=== PATIENT | female | born 1955 | race Caucasian/White ===

== ENCOUNTER 2017-09-07 11:55 | Emergency (ER) | payer OTHER ==
[2017-09-07 13:36] VITALS: BP 126/75
[2017-09-07 13:58] LABS: BASOPHILS % (AUTO) 0.6 %; EOSINOPHILS # (AUTO) 0.1 10^3/uL (0.0-0.7); EOSINOPHILS % (AUTO) 2.3 %; HCT - HEMATOCRIT 41.2 % (37.0-47.0); HGB - HEMOGLOBIN 14.2 g/dL (12.0-16.0); LYMPHOCYTES # (AUTO) 1.6 10^3/uL (1.5-3.5); LYMPHOCYTES % (AUTO) 24.5 %; MEAN CORPUSCULAR HGB CONC 34.5 g/dL (32.0-36.0); MEAN CORPUSCULAR VOLUME 86.7 fL (81.0-99.0); MEAN PLATELET VOLUME 9.7 fL (7.9-10.8); MONOCYTES # (AUTO) 0.6 10^3/uL (0.0-1.0); MONOCYTES % (AUTO) 9.8 %; NEUTROPHILS % (AUTO) 62.8 %; RED BLOOD COUNT 4.75 10^6/uL (4.20-5.40); RED CELL DISTRIBUTION WIDTH 13.2 % (12.0-15.0); UNCORRECTED WHITE BLOOD COUNT 6.3 x10^3/uL; WHITE BLOOD COUNT 6.3 x10^3/uL (4.8-10.8)
[2017-09-07 14:01] LABS: CALCIUM 9.6 mg/dL (8.5-10.3); CREATININE 0.9 mg/dL (0.4-1.0)
--- NOTE | 2017-09-07 14:21 | ED Physician Documentation ---
PD HPI DYSPNEA - Stated complaint Stated Complaint: SOA,COUGH,BACK PX - Chief complaint Chief Complaint: Resp - History obtained from History obtained from: Patient - History of Present Illness Associated symptoms: Cough - Additional information Additional information: 62-year-old female presents to the emergency department with cough, myalgias, subjective fevers, chest heaviness when breathing for the last 3 days. She reports that her shortness of breath is present at all times. She did not receive a flu shot this year. She has no underlying lung disease and does not use any nebulizers or inhalers. She also has nasal congestion.She is taking NyQuil and saline nasal spray with minimal relief She has no lower extremity swelling. Her chest heaviness is substernal and constant for the last 3 days. 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 : None Psych: Depression, Anxiety Musculoskeletal: Osteoarthritis, Fibromyalgia Derm: None - Past Surgical History Past Surgical History: Yes General: Appendectomy Ortho: Spine surgery - Present Medications Home Medications: Ambulatory Orders Medication Instructions Recorded Confirmed Albuterol Sulf [Ventolin Hfa 2 puffs INH Q4HR PRN #1 inhaler 09/07/17 Inhaler] Benzonatate [Tessalon Perle] 100 - 200 mg PO TID PRN #30 capsule 09/07/17 - Allergies Allergies/Adverse Reactions: Allergies Allergy/AdvReac Type Severity Reaction Status Date / Time No Known Drug Allergies Allergy Verified 09/07/17 12:06 - Social History Does the pt smoke?: No Smoking Status: Never smoker Does the pt drink ETOH?: Yes Does the pt have substance abuse?: No - Immunizations Immunizations are current?: Yes - POLST Patient has POLST: No PD ED PE NORMAL - Vitals Vital signs reviewed: Yes - General General: Alert and oriented X 3, No acute distress - HEENT HEENT: PERRL, Other (nasal congestion ) - Neck Neck: Supple, no meningeal sign - Cardiac Cardiac: RRR, No murmur - Respiratory Respiratory: Clear bilaterally - Abdomen Abdomen: Normal bowel sounds, Soft, Non tender, Non distended - Derm Derm: Warm and dry - Extremities Extremities: No deformity - Neuro Neuro: Alert and oriented X 3 - Psych Psych: Normal mood, Normal affect Results - Vitals Vitals: Vital Signs - 24 hr 09/07/17 09/07/17 09/07/17 12:03 13:36 15:23 Temperature 36.6 C 36.5 C Heart Rate 80 76 81 Respiratory 24 18 14 Rate Blood Pressure 158/86 H 126/75 O2 Saturation 95 99 Oxygen O2 Source Room air - EKG (time done) 1203 Rate: Rate (enter#) (79) Rhythm: NSR [place]: Normal Intervals: Normal [place] Ischemia: Normal ST segments - Labs Labs: Laboratory Tests 09/07/17 09/07/17 09/07/17 13:06 13:06 13:35 WBC 6.3 RBC 4.75 Hgb 14.2 Hct 41.2 MCV 86.7 MCH 30.0 MCHC 34.5 RDW 13.2 Plt Count 202 MPV 9.7 Neut # 4.0 Lymph # 1.6 Bond # 0.6 Eos # 0.1 Baso # 0.0 Absolute Nucleated RBC 0.00 Nucleated RBC % 0.0 Sodium 142 Potassium 4.0 Chloride 101 Carbon Dioxide 27 Anion Gap 14.0 H BUN 16 Creatinine 0.9 Estimated GFR (MDRD) 63 L Glucose 103 H Calcium 9.6 B-Natriuretic Peptide < 5 L Influenza A (Rapid) Influenza B (Rapid) Influenza Types A,B Ag 09/07/17 14:18 WBC RBC Hgb Hct MCV MCH MCHC RDW Plt Count MPV Neut # Lymph # Bond # Eos # Baso # Absolute Nucleated RBC Nucleated RBC % Sodium Potassium Chloride Carbon Dioxide Anion Gap BUN Creatinine Estimated GFR (MDRD) Glucose Calcium B-Natriuretic Peptide Influenza A (Rapid) Negative Influenza B (Rapid) Negative Influenza Types A,B Ag - - Rads (name of study) chest xray Radiology: Final report received (No acute intrathoracic plain film abnormality) PD MEDICAL DECISION MAKING - ED course ED course: Chest x-ray and laboratory workup unrevealing and within normal limits.Patient is having some chest pressure which is quite atypical for cardiac chest pain nonetheless an EKG was performed and unrevealing.She did not have any indications for antibiotics at this time. She was treated with an albuterol Nebulizers she has had history of wheeze with other infections although does not have a diagnosis of asthma, at the very least would help potentially with her cough. Discussed with patient symptomatic management and return precautions. influenza negative Departure - Departure Disposition: 01 Home, Self Care Clinical Impression: Sinusitis, Upper respiratory infection Condition: Good Instructions: ED Sinusitis No Abx, ED Viral Syndrome Prescriptions: Albuterol Sulf [Ventolin Hfa Inhaler] 2 puffs INH Q4HR PRN #1 inhaler PRN Reason: Cough Benzonatate [Tessalon Perle] 100 - 200 mg PO TID PRN #30 capsule PRN Reason: Cough Comments: Make an appointment to follow-up with your primary care doctor for recheck. Your chest X-ray did not reveal any pneumonia or other abnormalities today. Your laboratory workup was unrevealing and reassuring. Your influenza test was negative. You were given an inhaler not because you were wheezing or have asthma but to help your cough. At this time antibiotics would be unlikely to help your symptoms, there is a good chance that you have a viral illness. If your symptoms get worse with more difficulty breathing or if you have any chest pain you should return to the emergency department. For now you should take zysa-ilq-rtqapdl ibuprofen and Tylenol and cold remedies as directed on the package.
--- NOTE | 2017-09-07 14:44 | XRAY Preliminary Report ---
Exam: XR CHEST 2 VIEW PA/LAT IMPRESSION: No acute intrathoracic plain film abnormality. [facility] SITE ID: [id number]
--- NOTE | 2017-09-07 14:47 | XRAY Report ---
EXAM: CHEST RADIOGRAPHY EXAM DATE: 09/07/2017 01:59 PM. CLINICAL HISTORY: Cough, SOB. COMPARISON: None. TECHNIQUE: 2 views. FINDINGS: Lungs/Pleura: No focal opacities evident. No pleural effusion. No pneumothorax. Normal volumes. Mediastinum: Heart and mediastinal contours are unremarkable. Other: None. IMPRESSION: No acute intrathoracic plain film abnormality. [facility] Referring Provider Line: [phone] SITE ID: [id number]
[2017-09-07] MEDS ORDERED: ALBUTEROL NEB 2.5 MG/3 ML INH STA (15:04)
[2017-09-07] MEDS ORDERED: KETOROLAC 30 MG/ML VIAL IVP STA (15:06)
[2017-09-07] MEDS ORDERED: BENZONATATE 100 MG CAPSULE PO STA (15:07)
[2017-09-07] MEDS ORDERED: KETOROLAC 30 MG/ML VIAL ONE ×2 (15:23→15:36)
[2017-09-07] MEDS ORDERED: BENZONATATE 100 MG CAPSULE PO ONE (15:23)
[2017-09-07] MEDS ORDERED: ALBUTEROL NEB 2.5 MG/3 ML INH ONE (15:24)
[2017-09-07] MEDS ORDERED: KETOROLAC 30 MG/ML VIAL IM STA (15:28)
== END 2017-09-07 15:50 | disposition home or self-care (01) ==
LOC: ED 11:55
DX: J32.9 Chronic sinusitis, unspecified (principal); J06.9 Acute upper respiratory infection, unspecified; I10 Essential (primary) hypertension; M19.90 Unspecified osteoarthritis, unspecified site; M79.7 Fibromyalgia; R07.89 Other chest pain
CPT/HCPCS: 36415; 71020; 80048; 83880; 85025; 87275; 87276; 93005; 94640; 94664; 96372; 96374; 99282; 99284; A9270; J7613

== ENCOUNTER 2017-12-03 13:40 | Outpatient (CLI) | payer OTHER ==
--- NOTE | 2017-12-03 16:59 | MRI Report ---
EXAM: MRI THORACIC SPINE WITHOUT CONTRAST EXAM DATE: 12/03/2017 03:05 PM. CLINICAL HISTORY: Cervicalgia, for pending neurostimulator implant. Chronic neck and low back pain. B ilateral hand pain and numbness. Previous cervical spine fusion. COMPARISONS: None. TECHNIQUE: Multiplanar, multisequence T1-weighted and fluid-sensitive sequences of the thoracic spine from C7 to L1 without contrast. Other: None. FINDINGS: Spinal Cord: No signal abnormality in the visualized spinal cord. Alignment: No scoliosis or spondylolisthesis. Bone Marrow: No gross fractures or bone lesion. No bone marrow edema. Disk Levels/Facets: C6-C7: Yoow-zi-khoopquc disk space narrowing. Tiny posterior left paracentral disk protrusion/osteoph yte complex. Previous laminectomy. No stenoses. C7-T1: Minimal disk bulge. Nxii-kr-ctpmzqag left and mild right facet arthropathy. No stenoses. T1-T2: Small posterior disk bulge. Small left foraminal disk protrusion. Mild facet arthropathy. Mode rate to severe left and moderate right foraminal stenoses. T2-T3: Small posterior central to left paracentral disk protrusion. Pajv-ew-cagrcugk right and mild l eft facet arthropathy. No stenoses. T3-T4: Mild right facet arthropathy. No stenoses. T4-T5: Unremarkable. T5-T6: Small anterior osteophytes. No stenoses. T6-T7 unremarkable. T7-T8: Unremarkable. T8-T9: Small Schmorl's node at the T8 inferior endplate. Otherwise, unremarkable. T9-T10, T10-T11, T11-T12, T12-L1: Unremarkable. Musculature: Normal. No edema or fatty atrophy. Other: The visualized lungs, mediastinum, and abdominal cavity are unremarkable. Metallic fusion hard rowell at the cervical spine. IMPRESSION: 1. Tiny posterior left paracentral disk protrusion/osteophyte complex at C6-C7. Previous laminectomy. 2. Small posterior disk bulge and small left foraminal disk protrusion at T1-T2. Moderate to severe l eft and moderate right foraminal stenoses. 3. Small posterior central to left paracentral disk protrusion at T2-T3. No stenoses. [facility] Referring Provider Line: [phone] SITE ID: [id number]
== END 2017-12-03 13:41 | disposition home or self-care (01) ==
LOC: DI 13:40
PROVIDERS: ATTEND Anesthesiology Pain Medicine
DX: M50.223 Other cervical disc displacement at C6-C7 level (principal); M51.24 Other intervertebral disc displacement, thoracic region; M47.894 Other spondylosis, thoracic region
CPT/HCPCS: 72146

== ENCOUNTER 2018-01-24 11:42 | Outpatient (CLI) | payer OTHER ==
--- NOTE | 2018-02-02 16:34 | Mammography Report ---
SCREENING MAMMOGRAM: 01/24/2018 CLINICAL INDICATION: A 62-year-old with history of reduction, family history of breast cancer, history of late childbearing, for screening. COMPARISON: The patient reports having had previous mammograms, but images have not arrived for direct comparison. If they become available, an addendum will be issued. Otherwise, this will serve as a new baseline. TECHNIQUE: Routine CC and MLO projections were obtained of the breasts. FINDINGS: The breasts demonstrate scattered fibroglandular densities bilaterally. Punctate, typically benign calcifications are present. No suspicious masses, clustered microcalcifications, or regions of architectural distortion are identified. IMPRESSION: BENIGN FINDINGS. RECOMMENDATION: Routine annual screening unless otherwise clinically indicated. BI-RADS CATEGORY 2 BENIGN FINDINGS. STANDARD QUALIFYING STATEMENTS: 1. This examination was reviewed with the aid of Computer-Aided Detection (CAD). 2. A negative or benign imaging report should not delay biopsy if clinically suspicious findings are present. Consider surgical consultation if warranted. More than 5% of cancers are not identified by imaging. 3. Dense breasts may obscure an underlying neoplasm. TD: 02/02/2018 16:33
== END 2018-01-24 11:43 | disposition home or self-care (01) ==
LOC: DI 11:42
PROVIDERS: ATTEND Family Medicine
DX: Z12.31 Encounter for screening mammogram for malignant neoplasm of breast (principal); Z80.3 Family history of malignant neoplasm of breast
CPT/HCPCS: 77067

== ENCOUNTER 2019-05-10 09:17 | Outpatient (CLI) | payer OTHER ==
[2019-05-10 10:00] LABS: ALBUMIN/GLOBULIN RATIO 1.3 (1.0-2.2); ALKALINE PHOSPHATASE 84 IU/L (42-121); ALT ALANINE AMINOTRANSFERASE 20 IU/L (10-60); AST ASPARTATE AMINOTRANSFERASE 20 IU/L (10-42); BILIRUBIN,TOTAL 0.8 mg/dL (0.2-1.0); BUN - BLOOD UREA NITROGEN 18 mg/dL (6-20); CALCIUM 9.6 mg/dL (8.5-10.3); CARBON DIOXIDE - CO2 29 mmol/L (21-32); CHLORIDE 103 mmol/L (101-111); CHOL/HDL RATIO 3.2 (<4.4); CHOLESTEROL 164 mg/dL; CREATININE 0.9 mg/dL (0.4-1.0); GFR - MDRD 63 (>89); GLUCOSE 118 mg/dL (70-100); HDL CHOLESTEROL 51 mg/dL; LDL CHOLESTEROL,CALCULATED 93 mg/dL; LDL/HDL RATIO 1.8 (<4.4); SODIUM 143 mmol/L (135-145); TOTAL PROTEIN 7.2 g/dL (6.7-8.2); VLDL CHOLESTEROL 20 mg/dL
== END 2019-05-10 09:18 | disposition home or self-care (01) ==
LOC: LAB 09:17
PROVIDERS: ATTEND Family Medicine
DX: E03.9 Hypothyroidism, unspecified (principal); E78.1 Pure hyperglyceridemia; E66.8 Other obesity; I10 Essential (primary) hypertension
CPT/HCPCS: 36415; 80053; 80061; 83721; 84443

== ENCOUNTER 2019-06-29 15:16 | Emergency (ER) | payer OTHER ==
--- NOTE | 2019-06-29 16:19 | XRAY Report ---
Reason: deformity, fall Procedure Date: 06/29/2019 Accession Number: [id number] / [id number] Procedure: XR - Wrist 3 View LT CPT Code: FULL RESULT: EXAM: LEFT WRIST RADIOGRAPHY EXAM DATE: 06/29/2019 04:07 PM. CLINICAL HISTORY: Left wrist pain from recent fall. COMPARISON: None. TECHNIQUE: 3 views. FINDINGS: Bones: Severely comminuted distal left radial fracture with intra-articular involvement and marked impaction at the fracture site. There is an ulnar styloid process avulsion fracture. On lateral view, there is loss of normal volar tilt with marked dorsal angulation at the impacted fracture site. No definite carpal bone abnormality. Joints: See above Soft Tissues: Normal. No soft tissue swelling. IMPRESSION: 1. Severely comminuted distal left radial fracture with marked impaction and dorsal angulation at the fracture site. 2. Ulnar stylet process avulsion fracture. [facility]
[2019-06-29] MEDS ORDERED: PROPOFOL 200 MG/20 ML VIAL IVP STA ×2 (16:49→17:53)
[2019-06-29] MEDS ORDERED: SODIUM CHLORIDE 0.9% 1,000 ML IV ONE (16:49)
[2019-06-29] MEDS ORDERED: HYDROmorphone 1 MG/ML CARPUJECT IVP STA (16:49)
--- NOTE | 2019-06-29 16:51 | ED Physician Documentation ---
PD HPI UPPER EXT INJURY - Stated complaint Stated Complaint: L WRIST/ARM PX - Chief complaint Chief Complaint: Trauma Ext - History obtained from History obtained from: Patient - History of Present Illness Location: Left (Tripped and fell backwards injuring her left wrist. 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 : None Psych: Depression, Anxiety Musculoskeletal: Osteoarthritis, Fibromyalgia Derm: None - Past Surgical History Past Surgical History: Yes General: Appendectomy Ortho: Spine surgery - Present Medications Home Medications: Ambulatory Orders Medication Instructions Recorded Confirmed Albuterol Sulf [Ventolin Hfa 2 puffs INH Q4HR PRN #1 inhaler 09/07/17 Inhaler] Benzonatate [Tessalon Perle] 100 - 200 mg PO TID PRN #30 capsule 09/07/17 Hydrocodone/Acetaminophen 1 - 2 each PO Q6H PRN #14 tablet 06/29/19 [Hydrocodon-Acetaminophen 5-325] - Allergies Allergies/Adverse Reactions: Allergies Allergy/AdvReac Type Severity Reaction Status Date / Time No Known Drug Allergies Allergy Verified 06/29/19 15:26 - Social History Does the pt smoke?: No Smoking Status: Never smoker Does the pt drink ETOH?: Yes Does the pt have substance abuse?: No - Immunizations Immunizations are current?: Yes - POLST Patient has POLST: No PD ED PE NORMAL - Vitals Vital signs reviewed: Yes - General General: Alert and oriented X 3, No acute distress - HEENT HEENT: PERRL, EOMI - Neck Neck: Other (She is quite tender to the lower cervical spine. She thinks that is a chronic state of affairs for her but would not "bet her life on it.") - Cardiac Cardiac: RRR, No murmur - Respiratory Respiratory: No respiratory distress, Clear bilaterally - Abdomen Abdomen: Non tender - Back Back: No CVA TTP, No spinal TTP - Derm Derm: Normal color, Warm and dry - Extremities Extremities: Other (There is no obvious deformity of the left wrist consistent with a Colles' fracture. Mildly diminished but not absent sensation in the hand throughout, not in the nerve pattern. Wedding ring was removed with her permission during exam.) - Neuro Neuro: Alert and oriented X 3, Normal speech Results - Vitals Vitals: Vital Signs - 24 hr 06/29/19 06/29/19 06/29/19 15:26 17:17 17:23 Temperature 36.5 C Heart Rate 79 79 64 Respiratory 18 15 17 Rate Blood Pressure 87/56 L 135/63 H 163/145 H O2 Saturation 99 100 96 06/29/19 06/29/19 06/29/19 17:25 17:33 17:38 Temperature Heart Rate 69 72 73 Respiratory 12 11 L 14 Rate Blood Pressure 127/66 119/65 O2 Saturation 99 96 06/29/19 06/29/19 06/29/19 18:11 18:30 18:43 Temperature Heart Rate 65 75 69 Respiratory 13 13 10 L Rate Blood Pressure 149/74 H 154/71 H 161/74 H O2 Saturation 100 100 100 06/29/19 06/29/19 06/29/19 19:03 19:07 19:11 Temperature Heart Rate 82 75 78 Respiratory 17 16 16 Rate Blood Pressure 150/67 H 150/67 H 133/65 H O2 Saturation 96 100 99 06/29/19 19:18 Temperature Heart Rate 78 Respiratory 16 Rate Blood Pressure O2 Saturation Oxygen O2 Source Room air - Rads (name of study) 3v L wrist Radiology: EMP read contemporaneously (severely comminuted L distal radius frx with impaction and dorsal angulation and an ulnar styloid fracture) CT Cspine Radiology: EMP read contemporaneously (1. No evidence of acute fracture or traumatic subluxation. No prevertebral soft tissue swelling. 2. The patient is status post C3-C7 posterior fusion and C4-C6 decompressive laminectomies. No evidence of hardware fracture. 3. There is lucency surrounding the C3 lateral mass screws bilaterally, suggestive of loosening (for example series 4 image 39). 4. There is solid bony fusion from C4-C6 across the facet joints bilaterally.) Procedures - Splint (location) LUE Splint applied by: Physician, Tech Type of splint: Fiberglass, Sugar tong Other: Patient tolerated well, No complications, Neurovascular intact, Sling provided - Reduction Body part reduced: Left, Wrist Fracture or dislocation: Fracture dislocation Anesthesia: Conscious sedation Reduction aftercare: Alignment improved, Splint applied - Procedural sedation Sedation prep: Informed consent, Time out completed, Last meal (12pm), PE performed, AHA 1 - healthy Sedation medications: propofol (80mg IVP) Patient status during sedation: Responds to tactile, Vitals remained stable, Maintained airway Sedation recovery: Recovered uneventfully Time in sedation (Minutes): 12 PD MEDICAL DECISION MAKING - ED course ED course: 64-year-old woman with a angulated Colles' fracture. I attempted to reduce it under sedation. I was not too happy with the postreduction films, did not seem well enough reduced and I spoke with Dr. Burroughs, the on-call orthopedic surgeon by phone who agrees that we should try again and he will be in to help. So at approximately 7:05 PM she was re-sedated with the orthopedist there, this time with divided doses of propofol totaling 130 mg. Sedation time 15 minutes. Subsequent to this the alignment was much better. She was given a prepack of Vicodin. Advised on follow-up. Of note I did give her a copy of the CT read and advised her to follow-up with a spinal surgeon regarding this, but it does not seem like an acute issue. Departure - Departure Disposition: 01 Home, Self Care Clinical Impression: Neck pain Fracture of left distal radius Qualifiers: Encounter type: initial encounter Fracture type: closed Fracture morphology: Colles' Qualified Code(s): S52.532A - Colles' fracture of left radius, initial encounter for closed fracture Fall Qualifiers: Encounter type: initial encounter Qualified Code(s): W19.XXXA - Unspecified fall, initial encounter Condition: Good Record reviewed to determine appropriate education?: Yes Instructions: ED Fx Forearm Radius Ulna Redu Requ Follow-Up: Rajesh Burroughs MD [Provider Admit Priv/Credential] - Prescriptions: Hydrocodone/Acetaminophen [Hydrocodon-Acetaminophen 5-325] 1 - 2 each PO Q6H PRN #14 tablet PRN Reason: pain Comments: Keep the splint on and dry, call Dr. Burroughs's office on Wednesday for an appointment within the week. Return for new worsening symptoms. Elevate as much as possible. Do not drink or drive while taking narcotic pain medication. Note that many narcotic pain relievers also contain Tylenol/acetaminophen. Please ensure that your total dose of acetaminophen from all sources does not exceed 3 g (3000 mg) per day. You may get constipated while on this medication. Take a stool softener such as Colace twice a day while you are on it. Also add an zmrw-sel-dyphjdk laxative such as senna or MiraLAX on any day that you do not have a bowel movement. If you received a narcotic pain medication or sedative while in the emergency department, do not drive for the next 24 hours. Your blood pressure was elevated today on check into the emergency department. This does not mean that you have hypertension, it is a common phenomenon to come to the emergency department and have elevated blood pressure. I recommend that you see your primary care physician within the week to have it rechecked when you are feeling better. Discharge Date/Time: 06/29/19 20:05
--- NOTE | 2019-06-29 17:12 | CT Report ---
Reason: neck inj Procedure Date: 06/29/2019 Accession Number: [id number] / [id number] Procedure: CT - CERVICAL SPINE WO CPT Code: FULL RESULT: EXAM: CT CERVICAL SPINE WITHOUT CONTRAST DATE: 06/29/2019 05:00 PM. HISTORY: 64-year-old female, fall, neck injury COMPARISONS: None. TECHNIQUE: Thin-section axial images were acquired of the cervical spine without contrast. Post-processing: Coronal and sagittal reformats. Other: None. In accordance with CT protocol optimization, one or more of the following dose reduction techniques were utilized for this exam: automated exposure control, adjustment of mA and/or KV based on patient size, or use of iterative reconstructive technique. FINDINGS: Postsurgical: The patient is status post C3-C7 posterior fusion and C4-C6 decompressive laminectomies. No evidence of hardware fracture. There is lucency surrounding the C3 lateral mass screws bilaterally, suggestive of loosening (for example series 4 image 39). There is solid bony fusion from C4-C6 across the facet joints bilaterally. Alignment: No scoliosis or spondylolisthesis. Bones: No fracture or bone lesion. No significant bony central canal or foraminal narrowing at any cervical level. Musculature: Normal. No fatty atrophy. Other: The paravertebral and prevertebral soft tissues are unremarkable. The lung apices are clear. IMPRESSION: 1. No evidence of acute fracture or traumatic subluxation. No prevertebral soft tissue swelling. 2. The patient is status post C3-C7 posterior fusion and C4-C6 decompressive laminectomies. No evidence of hardware fracture. 3. There is lucency surrounding the C3 lateral mass screws bilaterally, suggestive of loosening (for example series 4 image 39). 4. There is solid bony fusion from C4-C6 across the facet joints bilaterally. [facility]
--- NOTE | 2019-06-29 18:24 | XRAY Report ---
Reason: post reduction Procedure Date: 06/29/2019 Accession Number: [id number] / [id number] Procedure: XR - Wrist 2 View LT CPT Code: FULL RESULT: EXAM: LEFT WRIST RADIOGRAPHY EXAM DATE: 06/29/2019 05:49 PM. CLINICAL HISTORY: Post-reduction. COMPARISON: WRIST 3 VIEW LT 06/29/2019 3:56 PM. TECHNIQUE: 3 views. FINDINGS: Bones: Again seen is a comminuted, intra-articular fracture with impaction of the fracture fragments involving the distal radius. There is residual 6 mm of lateral and dorsal displacement of the distal fracture fragments. The degree of displacement is similar to the prereduction exam. Overlying splint obscures previously seen ulnar styloid avulsion fracture fragment. Joints: Normal. No subluxations. Soft Tissues: Normal. No soft tissue swelling. IMPRESSION: No significant interval change in appearance of comminuted, intra-articular distal radius fracture post-reduction. [facility]
[2019-06-29 19:14] VITALS: BP 133/65
--- NOTE | 2019-06-29 19:21 | PROVIDER PROGRESS NOTE ---
Subjective - Prog Note Date Prog Note Date: 06/29/19 Prog Note Time: 19:18 - Subjective Pt reports feeling: Worse (Patient had a GLF while moving a potted plant this afternoon, landing onto her outstretched left nondominant wrist. Noted immediate pain and deformity of the wrist. Painful wrist motion noted. No other injury. No prior wrist fracture) Objective - Vital Signs/Intake & Output Vital Signs: Vital Signs x48h Temp Pulse Resp BP Pulse Ox 06/29/19 19:11 78 16 133/65 H 99 06/29/19 19:07 75 16 150/67 H 100 06/29/19 19:03 82 17 150/67 H 96 06/29/19 18:43 69 10 L 161/74 H 100 06/29/19 18:30 75 13 154/71 H 100 06/29/19 18:11 65 13 149/74 H 100 06/29/19 17:38 73 14 119/65 96 06/29/19 17:33 72 11 L 127/66 99 06/29/19 17:25 69 12 06/29/19 17:23 64 17 163/145 H 96 06/29/19 17:17 79 15 135/63 H 100 06/29/19 15:26 36.5 C 79 18 87/56 L 99 - Diagnostic Imaging Diagnostic Imaging Comments: A shortened, angulated left distal radius facture - Other Results/Comments Other Results/Comments: EXAM: 1+ swelling, no wounds, 3+ tender left wrist. Painful motion. Sensation intact. Moving fingers well. Good cap filling Assessment/Plan - Problem List (1) Fracture of left distal radius Impression: Closed injury. N/V ok distally PLAN: With conscious sedation, hung left hand in [place] finger traps and applied 8 lbs traction across wrist fx for 2 minutes. Under a closed reduction, then sugar tong splinting of the wrist fracture performed. XR post reduction: improved position and alignment of fracture. Intra-articular split is about 2 mm. Qualifiers: Encounter type: initial encounter Fracture type: closed Fracture morphology: Colles' Qualified Code(s): S52.532A - Colles' fracture of left radius, initial encounter for closed fracture
[2019-06-29] MEDS ORDERED: HYDROcod/ACET 5/325 Prepack 4 PO STA (19:40)
--- NOTE | 2019-06-29 20:18 | XRAY Report ---
Reason: post reduction Procedure Date: 06/29/2019 Accession Number: [id number] / [id number] Procedure: XR - Wrist 2 View LT CPT Code: FULL RESULT: EXAM: LEFT WRIST RADIOGRAPHY EXAM DATE: 06/29/2019 07:41 PM. CLINICAL HISTORY: Wrist pain COMPARISON: WRIST 2 VIEW LT 06/29/2019 5:32 PM. TECHNIQUE: 2 views. FINDINGS: Overlying cast status post reduction distal left radius fracture. Alignment is near anatomic. No new abnormalities are seen. IMPRESSION: Overlying cast status post reduction distal left radius fracture. Alignment is near anatomic. No new abnormalities are seen. [facility]
--- NOTE | 2019-06-29 21:25 | CONSULTATION NOTE ---
DATE OF SERVICE: 06/29/2019 Physician: Rajesh Burroughs MD ORTHOPEDIC EMERGENCY ROOM CONSULT AND PROCEDURE NOTE REFERRING PHYSICIAN: Dr. Rk Chawla with the emergency room department. CHIEF COMPLAINT: "I hurt my left wrist." HISTORY OF PRESENT ILLNESS: Patient is a 64-year-old, right-hand dominant, female who was apparently moving a potted plant at her new home on [facility] when she lost her balance and fell onto her outstretched left nondominant wrist. She noted immediate pain and deformity of the left wr ist after this fall. Noted painful range of motion of her wrist afterwards, as well. There was no l oss of consciousness or other injuries. She had an obvious deformity of this wrist as well. She was taken to the emergency room here at [facility], where x-rays showed an intraarticular mildly comminuted, shortened and displaced and angulated fracture of her left distal radius. An atte mpt was made to reduce the fracture by the emergency room staff, but there was still a significant di splacement of fracture noted. Orthopedics was consulted to see if we can improve the reduction while she was still here in the emergency room. PHYSICAL EXAMINATION: Left wrist showed some mild swelling and an obvious bent fork deformity of the distal radius left side. There were no wounds noted. 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 Sensation intact throughout. Good capillary filling of the digits noted. LABORATORY DATA: Review of x-rays showed a left distal radius fracture - intra-articular with the di splacement as noted above. ASSESSMENT: Closed displaced intra-articular left nondominant distal radius fracture - fracture is s hortened and angulated. PLAN: Under conscious sedation, we applied 10 pounds of axial traction across the fracture with her fingers in a Maltese finger trap. After 2 minutes of traction, we then performed a closed reduction of her fracture. A sugar-tong splint was then applied to the upper extremity. X-rays taken post-red uction showed a much markedly improved position of the fracture and its alignment. The tiny gap in t he intra-articular split measured about 2 mm. POST PROCEDURE ASSESSMENT: Closed left nondominant distal radius fracture - intra-articular, but in much improved a lignment post-reduction. PLAN: The patient will stay in a sugar-tong splint and sling. Keep the hand elevated. Mild analges ics as needed. Followup in [facility] in about a week for a splint check, probable casting, a nd a new set of x-rays. Did caution her that if the intra-articular split shifts further apart, it i s possible she may require surgical reduction and fixation of this fracture. TD: 06/29/2019 19:48
== END 2019-06-29 20:05 | disposition home or self-care (01) ==
LOC: ED 15:16
DX: S52.572A Other intraarticular fracture of lower end of left radius, initial encounter for closed fracture (principal); S52.612A Displaced fracture of left ulna styloid process, initial encounter for closed fracture; W01.0XXA Fall on same level from slipping, tripping and stumbling without subsequent striking against object, initial encounter; Y93.89 Activity, other specified; Y92.009 Unspecified place in unspecified non-institutional (private) residence as the place of occurrence of the external cause; M54.2 Cervicalgia; Z98.1 Arthrodesis status; I10 Essential (primary) hypertension
CPT/HCPCS: 25605; 72125; 73100; 73110; 96374; 99156; 99283; 99285; J1170; 94770

== ENCOUNTER 2020-02-15 10:23 | Outpatient (CLI) | payer OTHER | END 2020-02-15 10:24 | disposition home or self-care (01) | LOC: DI 10:23 | PROVIDERS: ATTEND Neurological Surgery | DX: Z53.9 Procedure and treatment not carried out, unspecified reason (principal) ==

== ENCOUNTER 2021-01-21 12:25 | Outpatient (CLI) | payer MEDICARE ==
--- NOTE | 2021-01-21 14:24 | XRAY Report ---
PROCEDURE: Lumbar Spine 2 View INDICATIONS: CERVICALGIA,DORSOPATHY,DORSALGIA TECHNIQUE: 2 views of the lumbar spine were acquired. COMPARISON: None. FINDINGS: Bones: 5 [id number] vertebrae are present. There is normal bony alignment. No vertebral body compression fractures. No suspicious bony lesions. Mild multilevel disc space narrowing and endplat e osteophyte formation throughout the lumbar and lower thoracic spine. Facet hypertrophy throughout t he mid and lower lumbar spine. Soft tissues: Overlying bowel gas pattern is normal. No suspicious soft tissue calcifications. IMPRESSION: Multilevel degenerative disc and facet disease. No acute fracture. No osseous lesion. If symptoms and/or clinical suspicion for pathology continue, further assessment with repeat plain film s, or advanced imaging (e.g., CT, MRI, or bone scan) is recommended for further assessment. Reviewed by: Cecile Mcgarry MD on 01/21/2021 2:23 PM PDT Approved by: Cecile Mcgarry MD on 01/21/2021 2:23 PM PDT Station ID: [id number]
--- NOTE | 2021-01-21 14:24 | XRAY Report ---
PROCEDURE: Cervical Spine 2 View INDICATIONS: CERVICALGIA,DORSOPATHY,DORSALGIA TECHNIQUE: 3 view(s) of the cervical spine were acquired. COMPARISON: None. FINDINGS: Bones: No fractures or dislocations to the T1 level. The lateral masses of C1 appear intact on the odontoid view. No suspicious bony lesions. Posterior fusion hardware at C3-C7 is present. Soft tissues: No prevertebral soft tissue swelling. IMPRESSION: Postsurgical sequelae. No acute fracture. No osseous lesion. If symptoms and/or clinical suspicion for pathology continue, further assessment with repeat plain films, or advanced imaging (e .g., CT, MRI, or bone scan) is recommended for further assessment. Reviewed by: Cecile Mcgarry MD on 01/21/2021 2:22 PM PDT Approved by: Cecile Mcgarry MD on 01/21/2021 2:22 PM PDT Station ID: [id number]
== END 2021-01-21 12:26 | disposition home or self-care (01) ==
LOC: DI 12:25
PROVIDERS: ATTEND Family Medicine
DX: M51.36 Other intervertebral disc degeneration, lumbar region (principal); M51.34 Other intervertebral disc degeneration, thoracic region; M47.816 Spondylosis without myelopathy or radiculopathy, lumbar region; M47.814 Spondylosis without myelopathy or radiculopathy, thoracic region

== ENCOUNTER 2021-02-06 10:32 | Outpatient (CLI) | payer MEDICARE ==
[2021-02-06 11:00] LABS: BILIRUBIN,URINE NEGATIVE (NEGATIVE); GLUCOSE, URINE (UA) NEGATIVE (NEGATIVE); KETONES,URINE (UA) NEGATIVE (NEGATIVE); LEUKOCYTE ESTERASE, URINE SMALL (NEGATIVE); NITRITE,URINE POSITIVE (NEGATIVE); OCCULT BLOOD,URINE NEGATIVE (NEGATIVE); PROTEIN,URINE NEGATIVE (NEGATIVE); UROBILINOGEN,URINE 0.2 (NORMAL) E.U./dL (NORMAL)
[2021-02-06 11:00] LABS: BASOPHILS % (AUTO) 0.5 %; EOSINOPHILS # (AUTO) 0.2 10^3/uL (0.0-0.7); EOSINOPHILS % (AUTO) 3.2 %; HCT - HEMATOCRIT 42.6 % (37.0-47.0); HGB - HEMOGLOBIN 14.3 g/dL (12.0-16.0); LYMPHOCYTES # (AUTO) 1.5 10^3/uL (1.5-3.5); LYMPHOCYTES % (AUTO) 26.2 %; MEAN CORPUSCULAR HEMOGLOBIN 29.7 pg (27.0-31.0); MEAN CORPUSCULAR HGB CONC 33.6 g/dL (32.0-36.0); MEAN CORPUSCULAR VOLUME 88.4 fL (81.0-99.0); MEAN PLATELET VOLUME 11.9 fL (7.9-10.8); MONOCYTES # (AUTO) 0.3 10^3/uL (0.0-1.0); MONOCYTES % (AUTO) 5.8 %; NEUTROPHILS # (AUTO) 3.8 10^3/uL (1.5-6.6); NEUTROPHILS % (AUTO) 64.1 %; PLT - PLATELET COUNT 281 10^3/uL (130-450); RED BLOOD COUNT 4.82 10^6/uL (4.20-5.40); RED CELL DISTRIBUTION WIDTH 12.1 % (12.0-15.0); WHITE BLOOD COUNT 5.9 x10^3/uL (4.8-10.8)
[2021-02-06 11:01] LABS: CLARITY,URINE HAZY (CLEAR)
[2021-02-06 11:16] LABS: BACTERIA,URINE Moderate /HPF (None Seen); RBC,URINE 0-5 /HPF (0-5); SQUAMOUS EPITHELIAL CELL,UR MOD Squamous (<= Few); WBC,URINE 0-3 /HPF (0-5)
[2021-02-06 11:33] LABS: ALBUMIN/GLOBULIN RATIO 1.2 (1.0-2.2); ALKALINE PHOSPHATASE 89 IU/L (42-121); ALT ALANINE AMINOTRANSFERASE 21 IU/L (10-60); AST ASPARTATE AMINOTRANSFERASE 18 IU/L (10-42); BILIRUBIN,TOTAL 0.7 mg/dL (0.2-1.0); BUN - BLOOD UREA NITROGEN 12 mg/dL (6-20); CALCIUM 9.1 mg/dL (8.5-10.3); CARBON DIOXIDE - CO2 30 mmol/L (21-32); CHLORIDE 105 mmol/L (101-111); CHOL/HDL RATIO 3.5 (<4.4); CHOLESTEROL 159 mg/dL; CREATININE 0.9 mg/dL (0.4-1.0); GFR - MDRD 63 (>89); GLUCOSE 119 mg/dL (70-100); HDL CHOLESTEROL 46 mg/dL; LDL CHOLESTEROL,CALCULATED 90 mg/dL; POTASSIUM 3.8 mmol/L (3.5-5.0); SODIUM 143 mmol/L (135-145); TOTAL PROTEIN 7.3 g/dL (6.7-8.2); TRIGLYCERIDES 116 mg/dL; VLDL CHOLESTEROL 23 mg/dL
== END 2021-02-06 10:33 | disposition home or self-care (01) ==
LOC: LAB 10:32
PROVIDERS: ATTEND Orthopaedic Surgery
DX: E66.8 Other obesity (principal); E78.1 Pure hyperglyceridemia; E03.9 Hypothyroidism, unspecified; Z79.899 Other long term (current) drug therapy; I10 Essential (primary) hypertension; E74.9 Disorder of carbohydrate metabolism, unspecified
CPT/HCPCS: 36415; 80053; 80061; 81001; 81003; 83721; 84443; 85025

== ENCOUNTER 2022-06-05 07:47 | Emergency (ER) | payer MEDICARE ==
[2022-06-05] MEDS ORDERED: ONDANSETRON 4 MG/2 ML VIAL IVP STA (08:14)
[2022-06-05] MEDS ORDERED: KETOROLAC 30 MG/ML VIAL IVP STA (08:14)
[2022-06-05] MEDS ORDERED: SODIUM CHLORIDE 0.9% 1,000 ML IV STA (08:14)
[2022-06-05 08:16] LABS: BASOPHILS % (AUTO) 0.3 %; EOSINOPHILS % (AUTO) 0.1 %; HCT - HEMATOCRIT 40.5 % (37.0-47.0); HGB - HEMOGLOBIN 14.2 g/dL (12.0-16.0); LYMPHOCYTES # (AUTO) 1.6 10^3/uL (1.5-3.5); MEAN CORPUSCULAR HEMOGLOBIN 29.8 pg (27.0-31.0); MEAN CORPUSCULAR HGB CONC 35.1 g/dL (32.0-36.0); MEAN CORPUSCULAR VOLUME 85.1 fL (81.0-99.0); MEAN PLATELET VOLUME 11.9 fL (7.9-10.8); MONOCYTES # (AUTO) 0.4 10^3/uL (0.0-1.0); MONOCYTES % (AUTO) 4.9 %; NEUTROPHILS # (AUTO) 5.9 10^3/uL (1.5-6.6); NEUTROPHILS % (AUTO) 74.2 %; PLT - PLATELET COUNT 278 10^3/uL (130-450); RED BLOOD COUNT 4.76 10^6/uL (4.20-5.40); RED CELL DISTRIBUTION WIDTH 12.1 % (12.0-15.0); WHITE BLOOD COUNT 7.9 x10^3/uL (4.8-10.8)
--- NOTE | 2022-06-05 08:19 | ED Physician Documentation ---
PD HPI NVD - Stated complaint Stated Complaint: NAUSEA/VOMITING - Chief complaint Chief Complaint: Abd Pain - History obtained from History obtained from: Patient, Family - History of Present Illness Timing - onset: How many days ago (2) Timing - duration: Days (2) Timing - details: Gradual onset, Still present Associated symptoms: Abdominal pain, Loss of appetite Contributing factors: No: Sick contact, Recent antibiotics Improved by: Laying still Worsened by: Moving, Position, Palpation Similar symptoms before: Has not had sx before Recently seen: Not recently seen - Additonal information Additional information: 66-year-old Rima Thakkar has developed acute nausea vomiting and diarrhea that has been present for 2 days. She has been unable to control her vomiting and has developed diarrhea as well. She has uncontrolled abdominal pain and presents to the emergency department this morning with abdominal pain nausea vomiting and diarrhea. She does admit to regular use of cannabis. She denies similar previous episodes. Review of Systems Constitutional: denies: Fever, Chills, Myalgias Eyes: denies: Decreased vision Ears: denies: Ear pain Nose: denies: Rhinorrhea / runny nose, Congestion Throat: denies: Sore throat Cardiac: denies: Chest pain / pressure, Palpitations, Pedal edema, Calf pain Respiratory: denies: Dyspnea, Cough, Wheezing GI: reports: Abdominal Pain, Nausea, Vomiting, Diarrhea : denies: Dysuria, Frequency Skin: denies: Rash Musculoskeletal: denies: Neck pain, Back pain, Extremity pain Neurologic: reports: Headache. 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 Psych: Depression, Anxiety Musculoskeletal: Osteoarthritis, Fibromyalgia Derm: None - Past Surgical History Past Surgical History: Yes General: Appendectomy Ortho: Spine surgery - Present Medications Home Medications: Ambulatory Orders Medication Instructions Recorded Confirmed Albuterol Sulf [Ventolin Hfa 2 puffs INH Q4HR PRN #1 inhaler 09/07/17 Inhaler] Benzonatate [Tessalon Perle] 100 - 200 mg PO TID PRN #30 capsule 09/07/17 Hydrocodone/Acetaminophen 1 - 2 each PO Q6H PRN #14 tablet 10/03/19 [Hydrocodon-Acetaminophen 5-325] Azithromycin [Zithromax] 250 mg PO DAILY #6 tablet 06/05/22 - Allergies Allergies/Adverse Reactions: Allergies Allergy/AdvReac Type Severity Reaction Status Date / Time No Known Drug Allergies Allergy Verified 06/05/22 07:56 - Social History Does the pt smoke?: No Smoking Status: Never smoker Does the pt drink ETOH?: Yes Does the pt have substance abuse?: No - Immunizations Immunizations are current?: Yes - POLST Patient has POLST: No PD ED PE NORMAL - Vitals Vital signs reviewed: Yes (hypertensive ) - General General: Well developed/nourished, Other (moaning in pain with each breath. loss of concentration is present. ) - HEENT HEENT: Atraumatic, PERRL, EOMI, Other (dry mucous membranes) - Neck Neck: Supple, no meningeal sign, No bony TTP - Cardiac Cardiac: RRR, No murmur - Respiratory Respiratory: No respiratory distress, Clear bilaterally - Abdomen Abdomen: Normal bowel sounds, Soft, Non distended, No organomegaly, Other (tender to RUQ has pain to all areas palpated. Patient unable to localize pain. 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, No motor deficit, No sensory deficit, Normal speech Eye Opening: Spontaneous Motor: Obeys Commands Verbal: Oriented GCS Score: 15 - Psych Psych: Other (mood is defeated ) Results - Vitals Vitals: Vital Signs - 24 hr 06/05/22 06/05/22 06/05/22 07:53 10:49 12:04 Temperature 37.1 C Heart Rate 81 89 88 Respiratory 21 16 24 Rate Blood Pressure 146/87 H 136/67 H 128/79 O2 Saturation 97 93 100 Oxygen O2 Source Room air - Labs Labs: Laboratory Tests 06/05/22 06/05/22 06/05/22 08:08 08:08 11:00 WBC 7.9 RBC 4.76 Hgb 14.2 Hct 40.5 MCV 85.1 MCH 29.8 MCHC 35.1 RDW 12.1 Plt Count 278 MPV 11.9 H Neut # (Auto) 5.9 Lymph # (Auto) 1.6 Hughes # (Auto) 0.4 Eos # (Auto) 0.0 Baso # (Auto) 0.0 Absolute Nucleated RBC 0.00 Nucleated RBC % 0.0 Sodium 141 Potassium 3.2 L Chloride 106 Carbon Dioxide 20 L Anion Gap 15.0 H BUN 18 Creatinine 0.8 Estimated GFR (MDRD) 72 L Glucose 139 H Calcium 10.2 Total Bilirubin 1.2 H AST 23 ALT 17 Alkaline Phosphatase 73 Total Protein 7.6 Albumin 4.4 Globulin 3.2 Albumin/Globulin Ratio 1.4 Lipase 25 Urine Color DARK YELLOW Urine Clarity CLEAR Urine pH 8.0 H Ur Specific Dillon 1.010 Urine Protein NEGATIVE Urine Glucose (UA) NEGATIVE Urine Ketones >=80 H Urine Occult Blood NEGATIVE Urine Nitrite NEGATIVE Urine Bilirubin NEGATIVE Urine Urobilinogen 1 (NORMAL) Ur Leukocyte Esterase NEGATIVE Ur Microscopic Review NOT INDICATED Urine Culture Comments NOT INDICATED - Rads (name of study) u/s limited abd Radiology: Prelim report reviewed (Impression: No cholelithiasis or evidence of acute cholecystitis.), EMP read indepedently, See rad report CT ab/pel with Radiology: Prelim report reviewed (Impression: 1. Finding is concerning for low-grade colitis with mild diffuse colonic wall thickening and edema. No abscess collection. No free fluid or free air. Small hiatal hernia. Mild bibasilar dependent atelectasis. DDD in the lower lumbar spine. No compression fx or spondylolisthesis), EMP read indepedently, See rad report Procedures - IVC sono (time) 0814 Bedside IVC sono: IVC measures (cm) (1.01), Dehydration (est 1-2 liter deficit) PD MEDICAL DECISION MAKING - ED course Complexity details: reviewed old records, reviewed results, re-evaluated patient, considered differential, d/w patient, d/w family ED course: Previously well 66-year-old female presents to the emergency department with a 2-day history of abdominal pain, nausea, vomiting and diarrhea. She is unable to localize her pain and is moaning with each breath. She does have tenderness on examination and this seems most prominent in the right upper quadrant. I was able to use the bedside ultrasound to place the probe over the gallbladder the patient felt that this might be where her pain is coming from. The patient's level of distress precluded a more definitive ultrasound examination at the bedside and she was administered intravenous Toradol Zofran and fluid. This did little to treat the pain and she was administered IV dilaudid as well. She has some improvement with this. GB ultrasound is unremarkable. 10/ pain in a patient not usually seen in the ED warrants further investigation and a CT with contrast is ordered while we administer IV haldol and benadryl with the possibility of cannabis hyperemesis. The CT shows some issue with colitis. The patient responds well to the treatment with haldol and we had a further discussion about the cannabis hyperemesis. Departure - Departure Disposition: 01 Home, Self Care Clinical Impression: Diarrhea Qualifiers: Diarrhea type: presumed infectious Qualified Code(s): R19.7 - Diarrhea, unspecified Vomiting Qualifiers: Vomiting type: cyclical vomiting syndrome unrelated to migraine Qualified Code(s): R11.15 - Cyclical vomiting syndrome unrelated to migraine Condition: Stable Instructions: ED Diarrhea Bacterial, ED Nausea Vomiting Follow-Up: Khang Erickson [Primary Care Provider] - Prescriptions: Azithromycin [Zithromax] 250 mg PO DAILY #6 tablet Comments: Rima, Today it appears the uncontrolled vomiting and abdominal pain you had are likely related to cannabis use. My recommendation is to discontinue the use of cannabis. If you develop symptoms again follow up for treatment. (don't suffer at home we have an antidote). The diarrhea may be infectious and I have e-scribed some azithromycin to the community pharmacy here in [place]. Discharge Date/Time: 06/05/22 12:12
[2022-06-05 08:29] LABS: ALBUMIN 4.4 g/dL (3.2-5.5); ALBUMIN/GLOBULIN RATIO 1.4 (1.0-2.2); BILIRUBIN,TOTAL 1.2 mg/dL (0.2-1.0); CALCIUM 10.2 mg/dL (8.5-10.3); CREATININE 0.8 mg/dL (0.4-1.0); POTASSIUM 3.2 mmol/L (3.5-5.0); TOTAL PROTEIN 7.6 g/dL (6.7-8.2)
[2022-06-05] MEDS ORDERED: HYDROmorphone 1 MG/ML CARPUJECT IVP STA (08:32)
[2022-06-05] MEDS ORDERED: diphenhydrAMINE INJ 50 MG/ML VIAL IVP STA (09:08)
[2022-06-05] MEDS ORDERED: HALOPERIDOL 5 MG/ML VIAL IVP STA (09:08)
--- NOTE | 2022-06-05 09:32 | Ultrasound Report ---
PROCEDURE: Abdomen Limited INDICATIONS: RUQ and general abd pain TECHNIQUE: Real-time focused scanning was performed of the abdomen, with image documentation. COMPARISON: None. FINDINGS: Liver length of 14.5 cm. No suspicious focal liver lesion visualized. Gallbladder is unremarkable. No stones, wall thickening, or sonographic Landin sign. No biliary ductal dilation. Extra hepatic bile duct measures 5 mm. Visualized portions of the pancreas are unremarkable sonographically. Right renal length of 9.3 cm. No evidence of right nephrolithiasis or hydronephrosis. A simple appear ing 2.1 cm cortical cyst is present at the inferior kidney. No imaging follow-up is necessary for thi s finding per consensus recommendations based on imaging criteria. IMPRESSION: No cholelithiasis or evidence of acute cholecystitis. Reviewed by: Glenroy Krishnan MD on 06/05/2022 9:31 AM PDT Approved by: Glenroy Krishnan MD on 06/05/2022 9:31 AM PDT Station ID: [id number]
--- NOTE | 2022-06-05 09:58 | CT Report ---
PROCEDURE: Abdomen/Pelvis W INDICATIONS: general abd pain vomtin/diarrhea CONTRAST: IV CONTRAST: Optiray 320 ml: 100 PO CONTRAST: *NO PO CONTRAST TECHNIQUE: After the administration of IV contrast, 5 mm thick sections acquired from the diaphragms to the symp hysis. 5 mm thick coronal and sagittal reformats were acquired. For radiation dose reduction, the f ollowing was used: automated exposure control, adjustment of mA and/or kV according to patient size. COMPARISON: None. FINDINGS: Image quality: Excellent. ABDOMEN: Lung bases: Mild bibasilar dependent atelectasis is seen. Heart size is normal. Solid organs: Liver and spleen are normal in size and enhancement. Gallbladder it is within normal limits. Biliary system is non dilated. Pancreas enhances normally. No adrenal nodules. Kidneys de monstrate normal size and enhancement, without hydronephrosis. Peritoneum and bowel: There is a small hiatal hernia. No gross gastric wall thickening. There is no bowel obstruction. Questionable diffuse colonic wall thickening is noted with mild wall edema. No sig nificant pericolonic fat stranding. No gross small bowel wall thickening. No abscess collection. No f ree fluid or free air. Nodes and vessels: No retroperitoneal or mesenteric adenopathy by size criteria. Aorta and inferior vena cava are normal in size. Miscellaneous: No ventral hernias. PELVIS: Genitourinary: Bladder wall thickness is normal. Miscellaneous: No inguinal hernias or adenopathy. Possible pain management device is noted in left gluteal soft tissue with leads seen in posterior aspect of mid thoracic spinal canal. Bones: No suspicious bony lesions. No vertebral body compression fractures. Degenerative disc dise ase in lower lumbar spine at L4-5 and L5-S1 levels are seen. IMPRESSION: 1. Finding is concerning for low-grade colitis with mild diffuse colonic wall thickening and edema. N o abscess collection. No free fluid or free air. 2. Small hiatal hernia. 3. Mild bibasilar dependent atelectasis. 4. Degenerative disc disease in lower lumbar spine. No compression fracture or spondylolisthesis. Reviewed by: Sravan Ansari MD on 06/05/2022 9:57 AM PDT Approved by: Sravan Ansari MD on 06/05/2022 9:57 AM PDT Station ID: [id number]
[2022-06-05 11:09] LABS: GLUCOSE, URINE (UA) NEGATIVE (NEGATIVE); KETONES,URINE (UA) >=80 mg/dL (NEGATIVE); LEUKOCYTE ESTERASE, URINE NEGATIVE (NEGATIVE); NITRITE,URINE NEGATIVE (NEGATIVE); OCCULT BLOOD,URINE NEGATIVE (NEGATIVE); PROTEIN,URINE NEGATIVE (NEGATIVE); UROBILINOGEN,URINE 1 (NORMAL) E.U./dL (NORMAL)
[2022-06-05 11:13] LABS: CLARITY,URINE CLEAR (CLEAR)
[2022-06-05 11:16] LABS: BILIRUBIN,URINE NEGATIVE (NEGATIVE); ICTOTEST,URINE NEGATIVE
[2022-06-05 12:05] VITALS: BP 128/79
== END 2022-06-05 12:12 | disposition home or self-care (01) ==
LOC: ED 07:47
DX: R11.15 Cyclical vomiting syndrome unrelated to migraine (principal); R19.7 Diarrhea, unspecified; I10 Essential (primary) hypertension
CPT/HCPCS: 36415; 74177; 76705; 80053; 81003; 83690; 85025; 96374; 96375; 99284; 99285; J1170; J1200; Q9967; 81001; 87086

== ENCOUNTER 2022-07-13 23:27 | Outpatient (CLI) | payer MEDICARE | END 2022-07-13 23:28 | disposition critical access hospital (66) | LOC: EMS 23:27 | DX: S99.912A Unspecified injury of left ankle, initial encounter (principal); W01.0XXA Fall on same level from slipping, tripping and stumbling without subsequent striking against object, initial encounter; Y92.002 Bathroom of unspecified non-institutional (private) residence as the place of occurrence of the external cause | CPT/HCPCS: A0425; A0429 ==

== ENCOUNTER 2022-07-13 23:46 | Emergency (ER) | payer MEDICARE ==
[2022-07-13] MEDS ORDERED: oxyCODONE 5 MG TABLET PO STA (23:49)
--- NOTE | 2022-07-14 00:41 | XRAY Report ---
PROCEDURE: Ankle 3 View LT INDICATIONS: ankle fracture TECHNIQUE: 3 views of the ankle were acquired. COMPARISON: None FINDINGS: Bones: Acute comminuted fracture involving medial malleolus is seen with distal and lateral displacem ent at fracture site. Acute comminuted oblique fracture through distal fibular shaft is seen with pascual pawel and lateral displacement at fracture site. There is also oblique fracture involving posterior mal leolus extending to posterior aspect of distal tibial platform with dorsally displaced fractured frag ment. Complete disruption ofankle mortise is normally aligned. No suspicious bony lesions. Soft tissues: Marked soft tissue swelling surrounding ankle joint is noted. There is suggestion of mo derate joint effusion. Achilles tendon appears normal. IMPRESSION: Acute comminuted and displaced trimalleolar fracture as described above. Reviewed by: Sravan Pollack MD on 07/14/2022 12:39 AM PDT Approved by: Sravan Pollack MD on 07/14/2022 12:39 AM PDT Station ID: [id number]
[2022-07-14] MEDS ORDERED: oxyCODONE/ACET 5/325 Prepack 4 PO STA (01:05)
--- NOTE | 2022-07-14 01:07 | ED Physician Documentation ---
History of Present Illness - Stated complaint Stated Complaint: L BROKEN ANKLE - Chief complaint Chief Complaint: Trauma Ext - History obtained from History obtained from: Patient - Additonal information Additional information: 67-year-old woman presents with sudden onset severe constant aching ankle pain after getting up to go the bathroom and twisting her ankle this evening. unable to bear weight. 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 Psych: Depression, Anxiety Musculoskeletal: Osteoarthritis, Fibromyalgia Derm: None - Past Surgical History Past Surgical History: Yes General: Appendectomy Ortho: Spine surgery - Present Medications Home Medications: Ambulatory Orders Medication Instructions Recorded Confirmed Albuterol Sulf [Ventolin Hfa 2 puffs INH Q4HR PRN #1 inhaler 09/07/17 07/14/22 Inhaler] Atorvastatin [Lipitor] 20 mg PO DAILY 07/14/22 07/14/22 Duloxetine HCl [Cymbalta] 60 mg PO DAILY 07/14/22 07/14/22 Gabapentin [Neurontin] 400 mg PO DAILY 07/14/22 07/14/22 Levothyroxine [Synthroid] 100 mcg PO DAILY 07/14/22 07/14/22 Losartan/Hydrochlorothiazide 1 tab PO DAILY 07/14/22 07/14/22 [Losartan-Hctz 100-12.5 mg Tab] Omeprazole 410 mg PO DAILY 07/14/22 07/14/22 Oxycodone HCl/Acetaminophen 1 each PO Q4H PRN #10 tablet 07/14/22 [Percocet 10-325 mg Tablet] - Allergies Allergies/Adverse Reactions: Allergies Allergy/AdvReac Type Severity Reaction Status Date / Time No Known Drug Allergies Allergy Verified 07/13/22 23:51 - Social History Does the pt smoke?: No Smoking Status: Never smoker Does the pt drink ETOH?: Yes Does the pt have substance abuse?: No - Immunizations Immunizations are current?: Yes - POLST Patient has POLST: No PD ED PE NORMAL - Vitals Vital signs reviewed: Yes - General General: Alert and oriented X 3, No acute distress, Well developed/nourished - HEENT HEENT: Atraumatic, PERRL, EOMI - Extremities Extremities: Other (Significant swelling, pain, deformity to left medial and lateral ankle. 2+ bilateral DP and PT pulses. Normal sensation and capillary refill) Results - Vitals Vitals: Vital Signs - 24 hr 07/13/22 23:51 Temperature 36.5 C Heart Rate 60 Respiratory 16 Rate Blood Pressure 150/70 H O2 Saturation 96 Oxygen O2 Source Room air PD MEDICAL DECISION MAKING - ED course ED course: 67-year-old woman presented with trimalleolar fracture. Posterior splint with stirrup applied and crutches provided. Patient will follow-up with orthopedics this week. Return precautions given.. Departure - Departure Disposition: Home, Self Care Clinical Impression: Trimalleolar fracture Condition: Stable Instructions: ED Fx Ankle General Follow-Up: Jad Carreno MD [Provider Admit Priv/Credential] - Prescriptions: Oxycodone HCl/Acetaminophen [Percocet 10-325 mg Tablet] 1 each PO Q4H PRN #10 tablet PRN Reason: Pain Comments: You are seen in the emergency department for a broken ankle (trimalleolar fracture). You need to follow-up with orthopedics this week. Do not bear any weight on the ankle. Keep your splint on. Return to the emergency department if you have any new or worsening symptoms or other concerns.
[2022-07-14 01:46] VITALS: BP 132/71
== END 2022-07-14 01:44 | disposition home or self-care (01) ==
LOC: EDUNIT# → ED 23:46
DX: S82.852A Displaced trimalleolar fracture of left lower leg, initial encounter for closed fracture (principal); X50.1XXA Overexertion from prolonged static or awkward postures, initial encounter; I10 Essential (primary) hypertension
CPT/HCPCS: 73610; 99281; 99283; A9270

== ENCOUNTER 2022-07-20 08:00 | Outpatient (CLI) | payer MEDICARE ==
--- NOTE | 2022-07-20 17:04 | XRAY Report ---
PROCEDURE: Ankle 3 View LT INDICATIONS: LEFT ANKLE FRACTURE TECHNIQUE: 3 views of the ankle were acquired. COMPARISON: 2 views of the ankle dated 07/13/2022 FINDINGS: Bones: Markedly comminuted, displaced fracture of the distal tibia and fibula are redemonstrated. The re is likely increased impaction of the fibular fracture when compared with the study dated 2. Soft tissues: There is soft tissue swelling present. A tibiotalar joint effusion is likely present.. IMPRESSION: Comminuted displaced intra-articular distal fibular and tibial fractures redemonstrated with questionable increased impaction of the distal fibular fracture from the prior study dated 07/13. Reviewed by: Gertrude Cary MD on 07/20/2022 5:03 PM PDT Approved by: Gertrude Cary MD on 07/20/2022 5:03 PM PDT Station ID: [id number]
== END 2022-07-20 23:59 | disposition home or self-care (01) ==
LOC: DI.WOS 08:00
PROVIDERS: ATTEND Orthopaedic Surgery
DX: S82.832A Other fracture of upper and lower end of left fibula, initial encounter for closed fracture (principal); S82.302A Unspecified fracture of lower end of left tibia, initial encounter for closed fracture

== ENCOUNTER 2022-07-21 12:57 | Outpatient (CLI) | payer MEDICARE ==
--- NOTE | 2022-07-21 18:52 | CT Report ---
PROCEDURE: LOWER EXTREMITY WO - LT INDICATIONS: LEFT LOWER LEG FX TECHNIQUE: Noncontrast 3-mm axial sections acquired from the distal tibial shaft to the talar dome, with coronal and sagittal reformats. For radiation dose reduction, the following was used: automated exposure c ontrol, adjustment of mA and/or kV according to patient size. COMPARISON: Ankle radiographs dated 07/20/2022, 07/13/2022. FINDINGS: Image quality: Excellent. Bones: There is an acute comminuted oblique fracture involving distal fibular shaft with dorsal and lateral displacement at fracture site. There is up to 5 mm diastases and 1 cm overlapping of fracture site. Additional medial and laterally displaced distal fibular shaft fracture fragments are also see n. There is also an acute comminuted fractures involving medial malleolus with distal and medial disp lacement of fractured fragments. There is also a slightly comminuted oblique fracture through posteri or aspect of distal tibia with 2 mm diastases at fracture site and posterior lateral displacement of the fractured fragment. No other fracture or dislocation is seen. Midfoot and hindfoot joint osteophy tic changes are seen. No suspicious intraosseous lesion. Soft tissues: There is widening of both medial and lateral ankle mortise. Ankle soft tissue swelling is seen. Moderate tibiotalar and subtalar joint effusion is likely present. No calcified intra-artic ular loose bodies. No full-thickness ankle tendon rupture. Impression: 1. Acute comminuted and displaced trimalleolar fractures in left ankle as described above. Complete d isruption of ankle mortise. 2. No other fracture or dislocation. Moderate midfoot and hindfoot joint osteoarthritis. No suspiciou s bony lesion. 3. Moderate ankle joint effusion and diffuse ankle soft tissue swelling. No abnormal soft tissue calc ifications. No full-thickness tendon rupture. Reviewed by: Sravan Ansari MD on 07/21/2022 6:51 PM PDT Approved by: Sravan Ansari MD on 07/21/2022 6:51 PM PDT Station ID: [id number]
== END 2022-07-21 12:58 | disposition home or self-care (01) ==
LOC: DI 12:57
PROVIDERS: ATTEND Orthopaedic Surgery
DX: S82.852A Displaced trimalleolar fracture of left lower leg, initial encounter for closed fracture (principal); M19.072 Primary osteoarthritis, left ankle and foot; M25.472 Effusion, left ankle

== ENCOUNTER 2022-07-22 09:37 | Day surgery (SDC) | payer MEDICARE ==
[~2022-07-22 09:37] MED LIST: ACETAMINOPHEN 1,000 MG/100 ML 1,000 MG/100 ML BAG IV ONE; CEFAZOLIN 2G/50ML 0.9% NS 2 GM/50 ML BAG IV ONE; DEXAMETHASONE 10 MG/ML VIAL ONE
[2022-07-22] MEDS ORDERED: LACTATED RINGERS 1,000 ML IV ONE ×2 (09:45→13:42)
[2022-07-22] MEDS ORDERED: fentaNYL 100 MCG/2 ML VIAL IVP PRN (10:45)
[2022-07-22] MEDS ORDERED: ONDANSETRON 4 MG/2 ML VIAL IVP PRN (10:45)
[2022-07-22] MEDS ORDERED: ATROPINE ABBOJECT 1 MG/10 ML SYRINGE IVP PRN (10:45)
[2022-07-22] MEDS ORDERED: MORPHINE 2 MG/ML CARPUJECT IVP PRN (10:45)
[2022-07-22] MEDS ORDERED: NALOXONE 0.4 MG/ML VIAL IVP PRN (10:45)
[2022-07-22] MEDS ORDERED: HYDROmorphone 0.5 MG/0.5 ML SYRINGE IVP PRN (10:45)
[2022-07-22] MEDS ORDERED: LACTATED RINGERS 1,000 ML IV SCH (11:00)
[2022-07-22] MEDS ORDERED: HYDROmorphone 0.5 MG/0.5 ML SYRINGE IVP SCH (11:00)
--- NOTE | 2022-07-22 11:08 | ANESTHESIA ---
Pre-Anesthesia VS, & Labs - Diagnosis displaced trimalleolar fracture left ankle - Procedure ORIF left ankle fracture Vital Signs: Temp Pulse Resp BP Pulse Ox O2 Flow Rate 36.3 C L 77 18 152/67 H 95 0 07/22/22 09:54 07/22/22 09:54 07/22/22 09:54 07/22/22 09:54 07/22/22 09:54 07/22/22 09:54 Height: 5 ft 7 in Weight (kg): 90.72 kg Body Mass Index: 31.3 BMI Classification: Obese - NPO Other (coffee with cream at 0700) - Is Patient ?: No Home Medications and Allergies Home Medications: Ambulatory Orders Azelastine HCl 1 spray INH BID 07/21/22 Celecoxib [Celebrex] 1 ea PO DAILY 07/21/22 Oxybutynin Chloride [Ditropan Xl] 1 tab PO DAILY 07/21/22 Propylene Glycol/Peg 400/Pf [Systane 0.3-0.4% Eye Drop] 1 ea EACHEYE DAILY 07/21/22 busPIRone [Buspar] 15 mg PO BID 07/21/22 oxyCODONE [Roxicodone] 1 tab PO DAILY 07/21/22 Active Medications Atropine Sulfate (Atropine Abboject 1 Mg/10 Ml Syringe) 0.5 mg IVP Q5M PRN PRN Reason: Bradycardia Stop: 07/23/22 10:46 Fentanyl (Fentanyl 100 Mcg/2 Ml Vial) 25 - 50 mcg IVP Q5M PRN PRN Reason: BREAKTHROUGH PAIN (2nd Choice) Stop: 07/23/22 10:46 Hydromorphone HCl (Hydromorphone 0.5 Mg/0.5 Ml Syringe) 0.5 mg IVP ONCE LIZETT Stop: 07/23/22 11:01 Last Admin: 07/22/22 10:59 Dose: 0.5 mg Hydromorphone HCl (Hydromorphone 0.5 Mg/0.5 Ml Syringe) 0.2 - 0.6 mg IVP Q5M PRN PRN Reason: PAIN (First Choice) Stop: 07/23/22 10:46 Lactated Ringer's (Lr) 1,000 mls @ 100 mls/hr IV .Q10H LIZETT Stop: 07/22/22 20:59 Morphine Sulfate (Morphine 2 Mg/Ml Carpuject) 2 - 4 mg IVP Q5M PRN PRN Reason: PAIN (3rd Choice) Stop: 07/23/22 10:46 Naloxone HCl (Naloxone 0.4 Mg/Ml Vial) 0.1 mg IVP Q2M PRN PRN Reason: RESP RATE <8 Stop: 07/23/22 10:46 Ondansetron HCl (Ondansetron 4 Mg/2 Ml Vial) 4 mg IVP ONCE PRN PRN Reason: N/V (First Choice) Stop: 07/23/22 10:46 Atorvastatin [Lipitor] 20 mg PO DAILY 07/14/22 Duloxetine HCl [Cymbalta] 60 mg PO DAILY 07/14/22 Gabapentin [Neurontin] 400 mg PO DAILY 07/14/22 Levothyroxine [Synthroid] 100 mcg PO DAILY 07/14/22 Losartan/Hydrochlorothiazide [Losartan-Hctz 100-12.5 mg Tab] 1 tab PO DAILY 07/14/22 Azelastine HCl 1 spray INH BID 07/21/22 Celecoxib [Celebrex] 1 ea PO DAILY 07/21/22 Oxybutynin Chloride [Ditropan Xl] 1 tab PO DAILY 07/21/22 Propylene Glycol/Peg 400/Pf [Systane 0.3-0.4% Eye Drop] 1 ea EACHEYE DAILY 07/21/22 busPIRone [Buspar] 15 mg PO BID 07/21/22 oxyCODONE [Roxicodone] 1 tab PO DAILY 07/21/22 Allergies/Adverse Reactions: Allergies Allergy/AdvReac Type Severity Reaction Status Date / Time tramadol Allergy Respiratory Verified 07/21/22 11:47 adhesive AdvReac Rash Verified 07/21/22 11:47 cigarette smoke AdvReac Respiratory Verified 07/21/22 11:47 perfume AdvReac Respiratory Verified 07/21/22 11:47 Feathers Allergy Respiratory Uncoded 07/21/22 11:47 Pollen Allergy Respiratory Uncoded 07/21/22 11:47 Anes History & Medical History - Medical History Cardiovascular: reports: Hypertension, High cholesterol Pulmonary: reports: None Gastrointestinal: reports: None Urinary: reports: Incontinence Neuro: reports: None Musculoskeletal: reports: Osteoarthritis, Fibromyalgia, Chronic back pain (s/p spinal cord stimulator) Endocrine/Autoimmune: reports: HyPOthyroidism Blood Disorders: reports: None Skin: reports: None Smoking Status: Never smoker Psychosocial: reports: Depression, Cannabis, Opioid History of Cancer?: No - Surgical History General: reports: Appendectomy Urologic: reports: Bladder surgery Gynecologic: reports: Breast reduction Neurologic: reports: Other Orthopedic: reports: Spine surgery (spinal cord stimulator), Other Exam General: Alert, Oriented x3, Cooperative, No acute distress Dental: WNL Mouth Openin Fingerbreadth Neck Mobility: Normal Mallampati classification: III Thyromental Distance: 4-6 cm Mental/Cognitive Status: Alert/Oriented X3, Normal for patient Plan Anesthesia Type: General, Popliteal Block (left), Adductor Block (left) Regional Block: Per Surgeon's request for Post Op pain control Consent for Procedure(s) Verified and Reviewed: Yes Code Status: Attempt Resuscitation ASA classification: 2-Mild systemic disease Is this case an emergency?: No
[2022-07-22] MEDS ORDERED: VANCOMYCIN 1 GM VIAL ONE (11:15)
[2022-07-22] MEDS ORDERED: BUPIVACAINE 0.25% PF 10 ML VIAL ONE (11:15)
[2022-07-22] MEDS ORDERED: ONDANSETRON 4 MG/2 ML VIAL ONE (11:19)
[2022-07-22] MEDS ORDERED: DEXAMETHASONE 4 MG/ML VIAL ONE (11:19)
[2022-07-22] MEDS ORDERED: PROPOFOL 200 MG/20 ML VIAL IVP ONE (11:19)
[2022-07-22] MEDS ORDERED: ROCURONIUM 50 MG/5 ML VIAL ONE (11:19)
[2022-07-22] MEDS ORDERED: fentaNYL 100 MCG/2 ML VIAL ONE ×2 (11:20→12:54)
[2022-07-22] MEDS ORDERED: MIDAZOLAM 2 MG/2 ML VIAL ONE (11:20)
[2022-07-22] MEDS ORDERED: ROPIVACAINE 0.5% PF 20 ML VIAL ONE (11:34)
[2022-07-22] MEDS ORDERED: ePHEDrine 50 MG/ML VIAL IVP ONE (12:15)
[2022-07-22] MEDS ORDERED: PHENYLEPHRINE 10 MG/ML VIAL ONE (12:25)
[2022-07-22] MEDS ORDERED: BACITRACIN ZINC OINT 1 PACKET TOP ONE (13:19)
[2022-07-22] MEDS ORDERED: BACITRACIN ZINC OINT 14 GM TOP ONE (13:24)
[2022-07-22] MEDS ORDERED: SUGAMMADEX 200 MG/2 ML VIAL IVP ONE (13:26)
[2022-07-22] MEDS ORDERED: ACETAMINOPHEN 500 MG TABLET PO PRN (13:44)
[2022-07-22] MEDS ORDERED: CELECOXIB 100 MG CAPSULE PO PRN (13:44)
[2022-07-22] MEDS ORDERED: oxyCODONE 5 MG TABLET PO PRN (13:44)
--- NOTE | 2022-07-22 13:50 | OPERATIVE REPORT ---
Operative Report - General Procedure Date: 07/22/22 Planned Procedure: Open reduction internal fixation trimalleolar fracture left ankle Pre-Op Diagnosis: Displaced, unstable trimalleolar fracture subluxation with soft tissue inju Procedure Performed: Open reduction internal fixation lateral malleolus with [employer] Nephew 3-1/2 x 110 mm intramedullary cortical screw Post Op Diagnosis: Same as preoperative diagnosis - Procedure Note Primary Surgeon: Jad Carreno MD Secondary Surgeon: Vianca GAO Anesthesia Technique: General ET tube, Regional block Estimated Blood Loss (mL): 5 Indications: This is a 67-year-old woman with a fall from standing height, sustaining i solated injury to her left ankle. Her injury occurred about a week ago. She was initially seen in the emergency room and referred to our office this week for orthopedic evaluation. She is primarily a household ambulator but does walk occasionally outdoors as well. She has had no previous problems with her left ankle. She has had a fragility wrist fracture on the left side from a fall and had open reduction internal fixation a few years ago. She does have a history of comorbidities including obesity and vascular disease but not symptomatic from vascular disease. Her ankle showed large bullae which are healing and not infected. The lateral bullae over the ankle was hemorrhagic and the medial bullae was serous. She has been immobilized in a sugar-tong splint and had Xeroform dressings applied in my office. She has atrophic skin, loss of hair distribution to the foot and the bullae as mentioned. She also has osteoporosis and had comminuted medial and lateral malleolar eye fractures as well as a posterior malleolar fracture. The talus was unstable within the ankle mortise and wanted to sublux in a lateral direction. She has had routine radiographs and a CT scan of the left ankle. Because of her age, osteoporosis, obesity and vascular disease I had prepared the patient for the possibility of using a tibial calcaneal tucker which would eliminate most of her foot and ankle function but stabilized the ankle fractures and ankle mortise. I did mention the possibility of trying to maintain ankle function if I could stabilize the ankle enough with a minimally invasive approach. She was acceptable to either procedure but preferred retaining ankle and foot function. Findings: The patient had an unstable ankle mortise with displaced and comminuted fractures of both medial and lateral malleolus, posterior malleolar fracture is relatively small. The ankle is unstable mostly with the talus wanting to sublux laterally. The talus did not seem to sublux posteriorly. The fracture blisters are clean and dry. There is not full reepithelialization of the blisters. Complications: None - Other Other Information/Narrative: The patient was brought to the operating room. She was placed in a supine position with a leg bolster beneath the left leg, hip roll beneath the left buttock, pneumatic tourniquet applied over cast padding to the proximal left thigh. The left lower extremity was prepped and draped in a sterile manner in the usual fashion. The C arm image intensifier was covered with a sterile drape. A timeout procedure was performed by the entire operating room team. She was given 2 g of Ancef intravenously. The ankle mortise could be reduced with gentle traction and inversion. I elected to proceed with stabilization of the lateral malleolus to see if it would stabilize the ankle mortise and if not, make the potential for tibial calcaneal tucker easier. Using a 15 blade, a 3 to 4 mm incision was made distal to the lateral malleolus and a 0.045 inch K wire was inserted from the tip of the lateral malleolus, across the reduced fracture into the proximal fibula. This was done with the C arm assistance in both AP and lateral views of the left ankle. The 2.8 cannulated drill was then placed over the guidepin to make an entry hole. The Mart [employer] Nephew 3.5 mm x 110 mm solid cortical screw was inserted after the K wire and cannulated drill have been removed. The intramedullary screw seem to provide satisfactory stability to the ankle mortise with the ankle in mild inversion. The ankle is relatively stable to any posterior displacement of the talus. The talus also was stable with mild inversion. It was felt that intramedullary screw stabilization would provide enough stability to the ankle mortise that further cast immobilization would be likely successful. If the ankle mortise were to develop recurrent instability, in my opinion, this would be a better use of a tibial calcaneal tucker as a salvage procedure. No tourniquet was utilized. No suture was necessary as the incision was so small. Bacitracin, Xeroform, Kerlix fluffs, several layers of cast padding and a 4 inch padded fiberglass sugar-tong splint was applied to the left lower leg. The C- arm image intensifier was used to confirm the reduction on AP and lateral views after the sugar-tong splint had been applied. A physician quality assistant was medically necessary to help with prepping and draping, positioning, protection of vital structures, assistance during the procedure including wound closure, dressing and/or splinting.
[2022-07-22 14:24] VITALS: BP 129/49
--- NOTE | 2022-07-22 14:51 | ANESTHESIA POST OP EVALUATION ---
Anesthesia Post Eval - Post Anesthesia Eval Vitals: Last Vital Signs Temp 36.4 C L 07/22/22 14:16 Pulse 100 07/22/22 14:22 Resp 16 07/22/22 14:22 BP 129/49 L 07/22/22 14:22 Pulse Ox 100 07/22/22 14:22 O2 Flow Rate 0 07/22/22 09:54 CV Function Including HR & BP: Stable Pain Control: Satisfactory Nausea & Vomiting: Negative Mental Status: Baseline Respiratory Status: Airway Patent Hydration Status: Satisfactory Anesthesia Complications: None
== END 2022-07-22 09:38 | disposition home or self-care (01) ==
LOC: SDS 09:37
PROVIDERS: ATTEND Orthopaedic Surgery
DX: S82.852A Displaced trimalleolar fracture of left lower leg, initial encounter for closed fracture (principal); E66.9 Obesity, unspecified; Z68.31 Body mass index [BMI] 31.0-31.9, adult; M81.0 Age-related osteoporosis without current pathological fracture; I99.9 Unspecified disorder of circulatory system; G89.29 Other chronic pain; M54.9 Dorsalgia, unspecified
CPT/HCPCS: 27792; A9270; J0131; J0690; J1170; J2795; J7120

== ENCOUNTER 2022-08-11 13:10 | Outpatient (CLI) | payer MEDICARE ==
--- NOTE | 2022-08-11 12:20 | XRAY Report ---
PROCEDURE: Ankle 3 View LT INDICATIONS: ANKLE ORIF/FRACTURE POST CASTING TECHNIQUE: 3 views of the ankle were acquired. COMPARISON: X-ray left ankle, 08/11/2022, 07/1601/04/2022 and 07/13/2022. CT lower extremity, 2021. FINDINGS: Bones: The ankle is in the plaster cast. Fine bone details are obscured. There is ORIF of distal fibular fracture with an intramedullary surgical screw in distal fibula. The alignment is unchanged. There are medial and posterior malleolar fractures with unchanged alignment. Soft tissues: No tibiotalar joint effusion. Achilles tendon appears normal. IMPRESSION: 1. ORIF of the distal fibular fracture. 2. Stable medial and posterior malleolar fractures. Reviewed by: Boogie Feng MD on 08/11/2022 12:19 PM PST Approved by: Boogie Feng MD on 08/11/2022 12:19 PM PST Station ID: [id number]
--- NOTE | 2022-08-11 14:24 | XRAY Report ---
PROCEDURE: Ankle 3 View LT INDICATIONS: LEFT ANKLE FRACTURE TECHNIQUE: 3 views of the ankle were acquired. COMPARISON: X-ray ankle 07/20/2022 FINDINGS: Bones: Screw fixation is present fixating the distal fibula. There is relatively good anatomic alignm ent. However, mild displacement of fracture fragments still persists. Comminuted medial malleoli or f racture is present. Posterior malleoli or fracture is present. Fracture is also identified through th e distal aspect of the tibia. Soft tissues: No tibiotalar joint effusion. Achilles tendon appears normal. IMPRESSION: Interval postsurgical fixation of distal fibular fracture. Medial and posterior malleollar fractures are unchanged. Reviewed by: Jaja Gonzalez MD on 08/11/2022 2:23 PM PST Approved by: Jaja Gonzalez MD on 08/11/2022 2:23 PM [facility] Station ID: [id number]
== END 2022-08-11 13:11 | disposition home or self-care (01) ==
LOC: DI.WOS 13:10
PROVIDERS: ATTEND Orthopaedic Surgery
DX: S82.852D Displaced trimalleolar fracture of left lower leg, subsequent encounter for closed fracture with routine healing (principal); S82.832D Other fracture of upper and lower end of left fibula, subsequent encounter for closed fracture with routine healing

== ENCOUNTER 2022-10-12 15:23 | Outpatient (CLI) | payer MEDICARE ==
--- NOTE | 2022-10-12 15:39 | XRAY Report ---
PROCEDURE: Ankle 3 View LT INDICATIONS: ANKLE FRACTURE TECHNIQUE: 4 views of the ankle were acquired. COMPARISON: Left ankle radiographs 08/11/2022 CT the left ankle 07/21/2022. FINDINGS: Bones: Casting material is been removed. Trimalleolar fracture. Screw fixation at the distal fibula. Stable alignment. No dislocation. Ankle mortise is normally aligned. No suspicious bony lesions. Joe edgar appear osteopenic. Soft tissues: Trace tibiotalar joint effusion. Achilles tendon appears normal. IMPRESSION: Stable alignment of the trimalleolar fracture. Reviewed by: Ko Montoya MD on 10/12/2022 3:38 PM PST Approved by: Ko Montoya MD on 10/12/2022 3:38 PM PST Station ID: [id number]
== END 2022-10-12 15:24 | disposition home or self-care (01) ==
LOC: DI.WOS 15:23
PROVIDERS: ATTEND Orthopaedic Surgery
DX: S82.852D Displaced trimalleolar fracture of left lower leg, subsequent encounter for closed fracture with routine healing (principal)

== ENCOUNTER 2022-11-12 11:33 | Outpatient (CLI) | payer MEDICARE ==
--- NOTE | 2022-11-13 09:07 | XRAY Report ---
PROCEDURE: Ankle 3 View LT INDICATIONS: LEFT ANKLE FRACTURE TECHNIQUE: 3 views of the ankle were acquired. COMPARISON: X-ray left ankle, 10/12/2022, 08/11/2022. FINDINGS: Bones: Non-acute comminuted trimalleolar fractures are again noted. There is a surgical screw in dis gayle fibula. Ankle mortise is uneven with lateral subluxation of talus at the tibiotalar joint. Align ment, however, appears stable. No suspicious bony lesions. Soft tissues: No tibiotalar joint effusion. Achilles tendon appears normal. IMPRESSION: No significant change in non--acute trimalleolar fracture. Postsurgical changes in the d istal fibula. Reviewed by: Boogie Feng MD on 11/13/2022 9:06 AM PST Approved by: Boogie Feng MD on 11/13/2022 9:06 AM PST Station ID: [id number]
== END 2022-11-12 11:34 | disposition home or self-care (01) ==
LOC: DI.WOS 11:33
PROVIDERS: ATTEND Orthopaedic Surgery
DX: S82.852D Displaced trimalleolar fracture of left lower leg, subsequent encounter for closed fracture with routine healing (principal)

== ENCOUNTER 2022-12-24 08:00 | Outpatient (CLI) | payer MEDICARE ==
--- NOTE | 2022-12-24 14:27 | XRAY Report ---
PROCEDURE: Ankle 3 View LT INDICATIONS: LEFT ANKLE FRACTURE TECHNIQUE: 3 views of the ankle were acquired. COMPARISON: X-ray ankle 11/12/2022 FINDINGS: Bones: Stable appearance of distal fibular tucker fixation. Hardware is intact without evidence of hardw are fracture or periprosthetic lucency to suggest loosening. 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 Alignment are stable.. Ankle mortise is norm ally aligned. No suspicious bony lesions. Soft tissues: No tibiotalar joint effusion. Achilles tendon appears normal. IMPRESSION: Stable alignment and fixation of previously identified trimalleolar fractures. Reviewed by: Jaja Gonzalez MD on 12/24/2022 2:25 PM PDT Approved by: Jaja Gonzalez MD on 12/24/2022 2:25 PM PDT Station ID: [id number]
== END 2022-12-24 23:59 | disposition home or self-care (01) ==
LOC: DI.WOS 08:00
PROVIDERS: ATTEND Orthopaedic Surgery
DX: S82.852D Displaced trimalleolar fracture of left lower leg, subsequent encounter for closed fracture with routine healing (principal)

== ENCOUNTER 2023-04-23 14:12 | Outpatient (CLI) | payer MEDICARE ==
--- NOTE | 2023-04-23 20:07 | DEXA Report ---
PROCEDURE: Dexa Spine and/or Hip INDICATIONS: POST MENOPAUSAL TECHNIQUE: Dual energy x-ray absorptiometry (DXA) was performed on a [employer] System. Regions measur ed are the AP Spine, femoral neck, and if needed forearm. COMPARISON: None. FINDINGS: Lumbar Spine: Bone Mineral Density 1.282 g/cm/cm,T score 0.7. Normal Left Femoral Neck: Bone Mineral Density 0.923 g/cm/cm, T score -0.8. Normal Left Hip: Bone Mineral Density 0.927 g/cm/cm,T score -0.6. Normal (T score greater or equal to -1.0: NORMAL) (T score from -1.1 to -2.4: OSTEOPENIA) (T score less than or equal to -2.5 to: OSTEOPOROSIS) Impression: By WHO criteria, this patient has normal bone density. Patients with diagnosis of osteoporosis or osteopenia should have regular bone mineral density assess ment. For those eligible for Medicare, routine testing is allowed once every 2 years. Testing frequ ency can be increased for patients who have rapidly progressing disease or for those who are receivin g medical therapy to restore bone mass. Reviewed by: Glenroy Healy MD on 04/23/2023 8:06 PM PDT Approved by: Glenroy Healy MD on 04/23/2023 8:06 PM PDT Station ID: [id number]
== END 2023-04-23 14:13 | disposition home or self-care (01) ==
LOC: DI 14:12
PROVIDERS: ATTEND Family Medicine
DX: N95.9 Unspecified menopausal and perimenopausal disorder (principal)

== ENCOUNTER 2023-07-22 12:45 | Outpatient (CLI) | payer MEDICARE ==
--- NOTE | 2023-07-23 10:28 | Mammography Report ---
BILATERAL DIGITAL SCREENING MAMMOGRAM 3D/2D: 07/22/2023 CLINICAL: Routine screening. Comparison is made to exam dated: 01/24/2018 mammogram - [facility]. There are scattered areas of fibroglandular density in both breasts (category b / 25%-50% glandular t issue). No significant masses, calcifications, or other findings are seen in either breast. There has been no significant interval change. IMPRESSION: NEGATIVE There is no mammographic evidence of malignancy. A 1 year screening mammogram is recommended. Based on the Tyrer Cuzick model (a risk assessment model) the patients lifetime risk is 11.3% and he r 10 year risk is 6.3%. According to the ACR, ACS, and NCCN guidelines, an annual breast MRI exam sharifa ng with mammogram is recommended if the patients lifetime risk is 20% or greater. This exam was interpreted at Station ID: [id number]. NOTE: For mammograms, a report in lay terms will be sent to the patient. Approximately 15% of breast malignancies will not be visualized mammographically. In the management of a palpable breast mass, a negative mammogram must not discourage biopsy of a clinically suspicious lesion. Electronically Signed By: Ko toscano/penrad:07/22/2023 18:00:47 letter sent: No_Letter ACR BI-RADS Category 1: Negative 3341F PARENCHYMAL PATTERN: (A) - The breast(s) demonstrate(s) scattered fibroglandular densities. BI-RADS CATEGORY: (1) - 1 Mammogram [id number] 1 year screening LATERALITY: (B)
== END 2023-07-22 12:46 | disposition home or self-care (01) ==
LOC: DI 12:45
PROVIDERS: ATTEND Family Medicine
DX: Z12.31 Encounter for screening mammogram for malignant neoplasm of breast (principal); R92.323 Mammographic fibroglandular density, bilateral breasts

== ENCOUNTER 2023-10-01 10:13 | Emergency (ER) | payer MEDICARE ==
[2023-10-01 10:41] LABS: BASOPHILS % (AUTO) 0.4 %; EOSINOPHILS # (AUTO) 0.1 10^3/uL (0.0-0.7); EOSINOPHILS % (AUTO) 1.9 %; HCT - HEMATOCRIT 41.4 % (37.0-47.0); HGB - HEMOGLOBIN 14.2 g/dL (12.0-16.0); LYMPHOCYTES # (AUTO) 1.3 10^3/uL (1.5-3.5); LYMPHOCYTES % (AUTO) 19.1 %; MEAN CORPUSCULAR HEMOGLOBIN 29.7 pg (27.0-31.0); MEAN CORPUSCULAR HGB CONC 34.3 g/dL (32.0-36.0); MEAN CORPUSCULAR VOLUME 86.6 fL (81.0-99.0); MEAN PLATELET VOLUME 11.8 fL (7.9-10.8); MONOCYTES # (AUTO) 0.4 10^3/uL (0.0-1.0); MONOCYTES % (AUTO) 5.8 %; NEUTROPHILS # (AUTO) 4.9 10^3/uL (1.5-6.6); NEUTROPHILS % (AUTO) 72.7 %; PLT - PLATELET COUNT 237 10^3/uL (130-450); RED BLOOD COUNT 4.78 10^6/uL (4.20-5.40); RED CELL DISTRIBUTION WIDTH 12.4 % (12.0-15.0); WHITE BLOOD COUNT 6.8 x10^3/uL (4.8-10.8)
[2023-10-01] MEDS ORDERED: SODIUM CHLORIDE 0.9% 1,000 ML IV STA (10:50)
[2023-10-01] MEDS ORDERED: ONDANSETRON 4 MG/2 ML VIAL IVP STA (10:50)
[2023-10-01] MEDS ORDERED: HYDROmorphone 1 MG/ML CARPUJECT IVP STA (10:50)
[2023-10-01 11:02] LABS: BILIRUBIN,URINE NEGATIVE (NEGATIVE); GLUCOSE, URINE (UA) NEGATIVE (NEGATIVE); KETONES,URINE (UA) 15 mg/dL (NEGATIVE); LEUKOCYTE ESTERASE, URINE NEGATIVE (NEGATIVE); NITRITE,URINE POSITIVE (NEGATIVE); OCCULT BLOOD,URINE NEGATIVE (NEGATIVE); PROTEIN,URINE 30 mg/dL (NEGATIVE); UROBILINOGEN,URINE 1 (NORMAL) E.U./dL (NORMAL)
[2023-10-01 11:03] LABS: CLARITY,URINE SL. CLOUDY (CLEAR)
[2023-10-01 11:06] LABS: ALBUMIN 4.5 g/dL (3.2-5.5); ALBUMIN/GLOBULIN RATIO 1.6 (1.0-2.2); BILIRUBIN,TOTAL 0.7 mg/dL (0.2-1.0); CALCIUM 9.7 mg/dL (8.5-10.3); CREATININE 0.8 mg/dL (0.6-1.3); POTASSIUM 3.3 mmol/L (3.5-4.5); TOTAL PROTEIN 7.4 g/dL (6.4-8.9)
[2023-10-01 11:07] LABS: RBC,URINE None Seen /HPF (0-5); SQUAMOUS EPITHELIAL CELL,UR MANY Squamous (<= Few); WBC,URINE 0-3 /HPF (0-5)
[2023-10-01 11:08] LABS: BACTERIA,URINE Moderate /HPF (None Seen)
[2023-10-01 11:51] LABS: B. PARAPERTUSSIS- RESP PCR PAN NOT DETECTED; B. PERTUSSIS- RESP PCR PANEL NOT DETECTED; C. PNEUMONIAE- RESP PCR PANEL NOT DETECTED; CORONAVIRUS 229E-RESP PCR NOT DETECTED; CORONAVIRUS HKU1-RESP PCR NOT DETECTED; CORONAVIRUS NL63-RESP PCR NOT DETECTED; CORONAVIRUS OC43-RESP PCR NOT DETECTED; HUMAN METAPNEUMOVIRUS NOT DETECTED; INFLUENZA A- RESP PCR PANEL NOT DETECTED; INFLUENZA B - RESP PCR PANEL NOT DETECTED; M. PNEUMONIAE- RESP PCR PANEL NOT DETECTED; PARAINFLUENZA VIRUS 1 NOT DETECTED; PARAINFLUENZA VIRUS 2 NOT DETECTED; PARAINFLUENZA VIRUS 3 NOT DETECTED; PARAINFLUENZA VIRUS 4 NOT DETECTED; RHINOVIRUS/ENTEROVIRUS NOT DETECTED; RSV- RESP PCR PANEL NOT DETECTED; SARS-CoV-2 -RESP PCR PANEL NOT DETECTED
--- NOTE | 2023-10-01 12:17 | CT Report ---
PROCEDURE: Abdomen/Pelvis WO INDICATIONS: R flank to suprapubic pain TECHNIQUE: A CT scan of the abdomen and pelvis was performed without the use of intravenous contrast. Images we re recorded and evaluated at appropriate window settings. Reformats: coronal and sagittal. For radiat ion dose reduction, the following was used: automated exposure control, adjustment of mA and/or kV ac cording to patient size. COMPARISON: None. FINDINGS: Image quality: Excellent. Lung bases and heart: Small hiatal hernia. Otherwise unremarkable. Liver: No contour-deforming mass. Gallbladder and biliary tree: No radiopaque stones or wall thickening. No biliary dilation. Spleen: No splenomegaly. Pancreas: No pancreatic ductal dilation. Adrenals: No adrenal nodule. Kidneys and ureters: No hydronephrosis. 1 mm nonobstructing right middle pole renal stone. No renal c ystic lesion which requires follow up. No solid mass. Bowel and peritoneum: No bowel distension. No pathologic free fluid. Mild diverticulosis without evid ence of diverticulitis. Lymph nodes: No central or retroperitoneal adenopathy. Vessels: No infrarenal aortic aneurysm. PELVIS Reproductive organs: Uterus is surgically absent. No adnexal masses.. Bladder: No wall thickness, accounting for underdistention. Pelvic lymph nodes: No pelvic adenopathy by size criteria. Bones: No aggressive osseous abnormality. Other: No significant ventral or inguinal hernia. IMPRESSION: 1. Incidental 1 mm nonobstructing right middle pole renal stone. No ureteral stones. No hydronephrosi s. 2. No acute abdominal process noted. 3. Mild diverticulosis. 4. Small hiatal hernia. 5. Uterus is surgically absent. Reviewed by: Raymond Love MD on 10/01/2023 12:16 PM PST Approved by: Raymond Love MD on 10/01/2023 12:16 PM PST Station ID: [id number]
[2023-10-01] MEDS ORDERED: cefTRIAXone 1 GM in SODIUM CHLORIDE 0.9% MINIBAG 100 ML IV STA (12:23)
[2023-10-01] MEDS ORDERED: POTASSIUM BICARB 25 MEQ TABLET PO ONE (12:23)
--- NOTE | 2023-10-01 12:34 | ED Physician Documentation ---
PD HPI ABD PAIN - Stated complaint Stated Complaint: VOMIT,DAVIS,BACK PX - Chief complaint Chief Complaint: Abd Pain - History obtained from History obtained from: Patient - Additional information Additional information: Patient is a 68 yo F with chronic back pain with R flank pain since 09/22/23 along with N/V. She initially reported having a day or two of diarrhea which has since resolved. Reports symptoms felt better for few days then started again 3 days ago. No blood in emesis. No recent trauma. Mild lower abdominal tenderness. History of appendectomy. Reports usual pain has worsened because she is not able to keep down her pain meds. No fever, CP, SOA. 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 OPERATED VEHICLE: None : Incontinence HEENT: None Psych: Depression, Anxiety Musculoskeletal: Osteoarthritis, Fibromyalgia Derm: None - Past Surgical History Past Surgical History: Yes General: Appendectomy Ortho: Spine surgery, Other /REMOTELY OPERATED VEHICLE: Breast reduction Neuro: Other - Present Medications Home Medications: Ambulatory Orders Medication Instructions Recorded Confirmed Albuterol Sulf [Ventolin Hfa 2 puffs INH Q4HR PRN #1 inhaler 09/07/17 07/21/22 Inhaler] Atorvastatin [Lipitor] 20 mg PO DAILY 07/14/22 07/22/22 Duloxetine HCl [Cymbalta] 60 mg PO DAILY 07/14/22 07/22/22 Gabapentin [Neurontin] 400 mg PO DAILY 07/14/22 07/21/22 Levothyroxine [Synthroid] 100 mcg PO DAILY 07/14/22 07/21/22 Losartan/Hydrochlorothiazide 1 tab PO DAILY 07/14/22 07/21/22 [Losartan-Hctz 100-12.5 mg Tab] Oxycodone HCl/Acetaminophen 1 each PO Q4H PRN #10 tablet 07/14/22 07/21/22 [Percocet 10-325 mg Tablet] Azelastine HCl 1 spray INH BID 07/21/22 07/21/22 Celecoxib [Celebrex] 1 ea PO DAILY 07/21/22 07/22/22 Propylene Glycol/Peg 400/Pf 1 ea EACHEYE DAILY 07/21/22 07/21/22 [Systane 0.3-0.4% Eye Drop] busPIRone [Buspar] 15 mg PO BID 07/21/22 07/22/22 oxyBUTYnin chloride [Ditropan Xl] 1 tab PO DAILY 07/21/22 07/21/22 oxyCODONE [Roxicodone] 1 tab PO DAILY 07/21/22 07/21/22 oxyCODONE [Roxicodone] 5 mg PO Q4-6H PRN #15 tablet 07/22/22 Ondansetron Odt [Zofran] 4 mg TL Q6H PRN #10 tablet 10/01/23 cephALEXin [Keflex] 500 mg PO Q6H #28 cap 10/01/23 - Allergies Allergies/Adverse Reactions: Allergies Allergy/AdvReac Type Severity Reaction Status Date / Time tramadol Allergy Respiratory Verified 07/21/22 11:47 adhesive AdvReac Rash Verified 07/21/22 11:47 cigarette smoke AdvReac Respiratory Verified 07/21/22 11:47 perfume AdvReac Respiratory Verified 07/21/22 11:47 Feathers Allergy Respiratory Uncoded 07/21/22 11:47 Pollen Allergy Respiratory Uncoded 07/21/22 11:47 - Social History Does the pt smoke?: No Smoking Status: Never smoker Does the pt drink ETOH?: Yes Does the pt have substance abuse?: No - Immunizations Immunizations are current?: Yes - POLST Patient has POLST: No PD ED PE NORMAL - General General: Alert and oriented X 3, No acute distress, Well developed/nourished - HEENT HEENT: Atraumatic, Moist mucous membranes, Pharynx benign - Neck Neck: Supple, no meningeal sign - Cardiac Cardiac: RRR, No murmur, Strong equal pulses - Respiratory Respiratory: No respiratory distress, Clear bilaterally - Abdomen Abdomen: Normal bowel sounds, Soft, Non distended, Other (Suprapubic tenderness, no rebound or guarding) - Back Back: No spinal TTP, Other (R CVA tenderness) - Derm Derm: Warm and dry - Neuro Neuro: Alert and oriented X 3, No motor deficit, No sensory deficit, Normal speech, Other (Normal unassisted gait) Results - Vitals Vitals: Vital Signs - 24 hr 10/01/23 10/01/23 10:22 12:48 Temperature 36.7 C 35.7 C L Heart Rate 83 82 Respiratory 18 18 Rate Blood Pressure 195/82 H 179/135 H O2 Saturation 98 99 Oxygen O2 Source Room air - Labs Labs: Laboratory Tests 10/01/23 10/01/23 10/01/23 10:36 10:36 10:55 WBC 6.8 RBC 4.78 Hgb 14.2 Hct 41.4 MCV 86.6 MCH 29.7 MCHC 34.3 RDW 12.4 Plt Count 237 MPV 11.8 H Neut # (Auto) 4.9 Lymph # (Auto) 1.3 L [place] # (Auto) 0.4 Eos # (Auto) 0.1 Baso # (Auto) 0.0 Absolute Nucleated RBC 0.00 Nucleated RBC % 0.0 Sodium 141 Potassium 3.3 L Chloride 103 Carbon Dioxide 29 Anion Gap 9.0 BUN 17 Creatinine 0.8 Estimated GFR (MDRD) 71 L Glucose 113 H Calcium 9.7 Total Bilirubin 0.7 AST 16 ALT 16 Alkaline Phosphatase 96 Total Protein 7.4 Albumin 4.5 Globulin 2.9 Albumin/Globulin Ratio 1.6 Lipase 15 Urine Color DARK YELLOW Urine Clarity SL. CLOUDY Urine pH 6.0 Ur Specific [place] 1.025 Urine Protein 30 H Urine Glucose (UA) NEGATIVE Urine Ketones 15 H Urine Occult Blood NEGATIVE Urine Nitrite POSITIVE H Urine Bilirubin NEGATIVE Urine Urobilinogen 1 (NORMAL) Ur Leukocyte Esterase NEGATIVE Urine RBC None Seen Urine WBC 0-3 Ur Squamous Epith Cells MANY Squamous H Urine Bacteria Moderate H Ur Microscopic Review INDICATED Urine Culture Comments NOT INDICATED Nasal Adenovirus (PCR) Nasal B. parapertussis DNA (PCR) Nasal Coronavir 229E PCR Nasal Coronavir HKU1 PCR Nasal Coronavir NL63 PCR Nasal Coronavir OC43 PCR Nasal Enterovir/Rhinovir PCR Nasal Influenza B PCR Nasal Influenza A PCR Nasal Parainfluen 1 PCR Nasal Parainfluen 2 PCR Nasal Parainfluen 3 PCR Nasal Parainfluen 4 PCR Nasal RSV (PCR) Nasal B.pertussis DNA PCR Nasal C.pneumoniae (PCR) [place] Human Metapneumo PCR Nasal M.pneumoniae (PCR) Nasal SARS-CoV-2 (PCR) 10/01/23 10:55 WBC RBC Hgb Hct MCV MCH MCHC RDW Plt Count MPV Neut # (Auto) Lymph # (Auto) [place] # (Auto) Eos # (Auto) Baso # (Auto) Absolute Nucleated RBC Nucleated RBC % Sodium Potassium Chloride Carbon Dioxide Anion Gap BUN Creatinine Estimated GFR (MDRD) Glucose Calcium Total Bilirubin AST ALT Alkaline Phosphatase Total Protein Albumin Globulin Albumin/Globulin Ratio Lipase Urine Color Urine Clarity Urine pH Ur Specific [place] Urine Protein Urine Glucose (UA) Urine Ketones Urine Occult Blood Urine Nitrite Urine Bilirubin Urine Urobilinogen Ur Leukocyte Esterase Urine RBC Urine WBC Ur Squamous Epith Cells Urine Bacteria Ur Microscopic Review Urine Culture Comments Nasal Adenovirus (PCR) NOT DETECTED Nasal B. parapertussis DNA (PCR) NOT DETECTED Nasal Coronavir 229E PCR NOT DETECTED Nasal Coronavir HKU1 PCR NOT DETECTED Nasal Coronavir NL63 PCR NOT DETECTED Nasal Coronavir OC43 PCR NOT DETECTED Nasal Enterovir/Rhinovir PCR NOT DETECTED Nasal Influenza B PCR NOT DETECTED Nasal Influenza A PCR NOT DETECTED Nasal Parainfluen 1 PCR NOT DETECTED Nasal Parainfluen 2 PCR NOT DETECTED Nasal Parainfluen 3 PCR NOT DETECTED Nasal Parainfluen 4 PCR NOT DETECTED Nasal RSV (PCR) NOT DETECTED Nasal B.pertussis DNA PCR NOT DETECTED Nasal C.pneumoniae (PCR) NOT DETECTED [place] Human Metapneumo PCR NOT DETECTED Nasal M.pneumoniae (PCR) NOT DETECTED Nasal SARS-CoV-2 (PCR) NOT DETECTED PD Medical Decision Making - ED course Complexity details: reviewed results, re-evaluated patient, d/w patient ED course: pt with R flank pain and N/V intermittently for past week. VSS. Mild suprapubic tenderness on exam. Normal neuro exam and ambulating here without difficulty. CBC and chemistries reviewed. K 3.3 replaced. UA with nitrite and bacteria with suprapubic tenderness so will opt to treat. CT abd/pelvis without stone or other acute findings. Pt feeling much better here with IV fluids, zofran, dilaudid for pain. Tolerating PO. Counseled on treatment plan need for close follow up as well as concerning symptoms to return for. Departure - Departure Disposition: 01 Home, Self Care Clinical Impression: Right flank pain, Nausea & vomiting, UTI (urinary tract infection) Condition: Stable Instructions: ED UTI Cystitis Female, ED Nausea Vomiting Prescriptions: cephALEXin [Keflex] 500 mg PO Q6H #28 cap Ondansetron Odt [Zofran] 4 mg TL Q6H PRN #10 tablet PRN Reason: Nausea / Vomiting Comments: I have sent prescriptions for a UTI as well as an antinausea medications to the [facility] pharmacy. Your CT scan shows that you have a stone in the right kidney but this should not be the source of your pain at this time. Your labs show that your potassium level was slightly low so I did give you potassium replacement. I am hopeful that the nausea medication will also be helpful for you at home to keep down your medications as well as to stay hydrated. I would recommend close follow-up with your primary care provider. If you develop any worsening symptoms such as continued vomiting, worsening pain or any other concerns please return to the emergency department. Forms: PCP List Discharge Date/Time: 10/01/23 13:27
[2023-10-01 12:49] VITALS: BP 179/135; O2SAT 99
[2023-10-01] MEDS ORDERED: ONDANSETRON 4 MG/2 ML VIAL IVP SCH (13:00)
[2023-10-01] MEDS ORDERED: HYDROmorphone 1 MG/ML CARPUJECT IVP SCH (13:00)
== END 2023-10-01 13:27 | disposition home or self-care (01) ==
LOC: ED 10:13
DX: N39.0 Urinary tract infection, site not specified (principal); R11.2 Nausea with vomiting, unspecified; I10 Essential (primary) hypertension; Z11.52 Encounter for screening for COVID-19
CPT/HCPCS: 36415; 74176; 80053; 81001; 83690; 85025; 87633; 96365; 96375; 99284; A9270; J1170; 81003; 87086

== ENCOUNTER 2023-10-29 11:36 | Emergency (ER) | payer MEDICARE ==
[2023-10-29] MEDS ORDERED: HYDROmorphone 0.5 MG/0.5 ML SYRINGE IVP STA ×2 (12:14→13:51)
[2023-10-29] MEDS ORDERED: SODIUM CHLORIDE 0.9% 1,000 ML IV ONE (12:14)
[2023-10-29] MEDS ORDERED: ACETAMINOPHEN 325 MG TABLET PO STA (12:14)
[2023-10-29] MEDS ORDERED: ONDANSETRON 4 MG/2 ML VIAL IVP STA ×2 (12:14→13:46)
--- NOTE | 2023-10-29 12:25 | ED Physician Documentation ---
History of Present Illness - Stated complaint Stated Complaint: LT RIB PX/GI - Chief complaint Chief Complaint: Abd Pain - Additonal information Additional information: 68-year-old female with history of hypertension, left dropfoot, hyperchol esterolemia, diverticulosis, osteoarthritis, fibromyalgia presents emergency department today for severe left rib pain, nausea, vomiting, diarrhea. About a week or 2 ago patient was diagnosed with UTI she was started on Keflex but the UTI symptoms persisted she followed up with her primary care provider who added an additional antibiotic she does not recall the name and was also worried at that time for possible diverticulitis. On patient's way home she tripped and fell onto her left side and has been having severe left rib pain since then. Patient reports because of the severity of the pain she has been taking pain meds and unable to keep them down due to persistent nausea and vomiting. She also reports that she has not been able to complete full course of antibiotics for her possible diverticulitis or UTI but she says that the pain is the most severe in her left rib region so she would know if she was having UTI symptoms or not at this point in time. Patient reports that she it was a mechanical trip and fall onto her left side onto concrete she is not on any blood thinners she did hit her left head she did not lose consciousness. Patient reports that she has dropfoot on her left foot and so this is common for her to miss a step but she says that this is the most severe fall she has had. She is unsure if she has had any fevers or chills but she does report that over the last few days she has been having bright orange diarrhea that she is concerned is related to possible blood. She says that she has had about 3-4 episodes of diarrhea a day for the last 2 days describes it as bright orange mucus. 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 Neuro: Other - Present Medications Home Medications: Ambulatory Orders Medication Instructions Recorded Confirmed Albuterol Sulf [Ventolin Hfa 2 puffs INH Q4HR PRN #1 inhaler 09/07/17 07/21/22 Inhaler] Atorvastatin [Lipitor] 20 mg PO DAILY 07/14/22 07/22/22 Duloxetine HCl [Cymbalta] 60 mg PO DAILY 07/14/22 07/22/22 Gabapentin [Neurontin] 400 mg PO DAILY 07/14/22 07/21/22 Levothyroxine [Synthroid] 100 mcg PO DAILY 07/14/22 07/21/22 Losartan/Hydrochlorothiazide 1 tab PO DAILY 07/14/22 07/21/22 [Losartan-Hctz 100-12.5 mg Tab] Oxycodone HCl/Acetaminophen 1 each PO Q4H PRN #10 tablet 07/14/22 07/21/22 [Percocet 10-325 mg Tablet] Azelastine HCl 1 spray INH BID 07/21/22 07/21/22 Celecoxib [Celebrex] 1 ea PO DAILY 07/21/22 07/22/22 Propylene Glycol/Peg 400/Pf 1 ea EACHEYE DAILY 07/21/22 07/21/22 [Systane 0.3-0.4% Eye Drop] busPIRone [Buspar] 15 mg PO BID 07/21/22 07/22/22 oxyBUTYnin chloride [Ditropan Xl] 1 tab PO DAILY 07/21/22 07/21/22 oxyCODONE [Roxicodone] 1 tab PO DAILY 07/21/22 07/21/22 oxyCODONE [Roxicodone] 5 mg PO Q4-6H PRN #15 tablet 07/22/22 Ondansetron Odt [Zofran] 4 mg TL Q6H PRN #10 tablet 10/01/23 cephALEXin [Keflex] 500 mg PO Q6H #28 cap 10/01/23 ONDANSETRON ODT Prepack 2 [ZOFRAN 4 mg TL Q6H PRN #12 tablet 10/29/23 ODT Prepack 2] oxyCODONE [Roxicodone] 5 mg PO Q4-6H PRN #12 tablet 10/29/23 - Allergies Allergies/Adverse Reactions: Allergies Allergy/AdvReac Type Severity Reaction Status Date / Time tramadol Allergy Respiratory Verified 10/29/23 11:38 adhesive AdvReac Rash Verified 10/29/23 11:38 cigarette smoke AdvReac Respiratory Verified 10/29/23 11:38 perfume AdvReac Respiratory Verified 10/29/23 11:38 Feathers Allergy Respiratory Uncoded 10/29/23 11:38 Pollen Allergy Respiratory Uncoded 10/29/23 11:38 - Social History Does the pt smoke?: No Smoking Status: Never smoker Does the pt drink ETOH?: Yes Does the pt have substance abuse?: No - Immunizations Immunizations are current?: Yes - POLST Patient has POLST: No PD ED PE NORMAL - Vitals Vital signs reviewed: Yes - General General: Alert and oriented X 3, Other (pt appears to be in acute distress, holding left ribs, tearful) - HEENT HEENT: Atraumatic, PERRL, EOMI, Moist mucous membranes - Neck Neck: No bony TTP, No JVD - Cardiac Cardiac: RRR, No murmur, Strong equal pulses - Respiratory Respiratory: No respiratory distress, Clear bilaterally - Abdomen Abdomen: Normal bowel sounds, Soft, Non distended - Back Back: No spinal TTP - Derm Derm: Normal color, Warm and dry, No rash - Extremities Extremities: No edema, No calf tenderness / cord - Neuro Neuro: Alert and oriented X 3, 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, No motor deficit, Normal speech Eye Opening: Spontaneous Motor: Obeys Commands Verbal: Oriented GCS Score: 15 - Free text exam Free text exam: Left rib pain, very guarded Results - Vitals Vitals: Vital Signs - 24 hr 10/29/23 10/29/23 10/29/23 11:38 13:44 14:29 Temperature 36.8 C 36.1 C L Heart Rate 99 75 80 Respiratory 18 18 18 Rate Blood Pressure 158/95 H 134/74 H 150/71 H O2 Saturation 100 100 97 10/29/23 16:02 Temperature 36.5 C Heart Rate 80 Respiratory 16 Rate Blood Pressure 140/70 H O2 Saturation 98 Oxygen O2 Source Room air - EKG (time done) 1458 EKG releavant findings:: EKG personally interpreted by author of this note. Relevant findings are: Rate: Rate (enter#) (67) Rhythm: NSR [place]: LAD Intervals: Normal MI QRS: Normal Ischemia: Normal ST segments Compare to prior EKG: Unchanged from prior EKG Computer interpretation: Agree with computer - Labs Labs: Laboratory Tests 0210/29/23 10/29/23 12:26 12:26 12:26 WBC 6.1 RBC 4.99 Hgb 14.5 Hct 43.4 MCV 87.0 MCH 29.1 MCHC 33.4 RDW 12.4 Plt Count 264 MPV 11.7 H Neut # (Auto) 4.1 Lymph # (Auto) 1.6 [place] # (Auto) 0.4 Eos # (Auto) 0.1 Baso # (Auto) 0.0 Absolute Nucleated RBC 0.00 Nucleated RBC % 0.0 Sodium 139 Potassium 3.5 Chloride 102 Carbon Dioxide 25 Anion Gap 12.0 BUN 21 H Creatinine 1.0 Estimated GFR (MDRD) 55 L Glucose 107 H Calcium 10.1 Magnesium 1.6 L Total Bilirubin 0.9 AST 16 ALT 12 Alkaline Phosphatase 101 Troponin I High Sens 3.3 Total Protein 7.7 Albumin 4.6 Globulin 3.1 Albumin/Globulin Ratio 1.5 Lipase 12 Urine Color Urine Clarity Urine pH Ur Specific [place] Urine Protein Urine Glucose (UA) Urine Ketones Urine Occult Blood Urine Nitrite Urine Bilirubin Urine Urobilinogen Ur Leukocyte Esterase Ur Microscopic Review Urine Culture Comments 10/29/23 12:28 WBC RBC Hgb Hct MCV MCH MCHC RDW Plt Count MPV Neut # (Auto) Lymph # (Auto) [place] # (Auto) Eos # (Auto) Baso # (Auto) Absolute Nucleated RBC Nucleated RBC % Sodium Potassium Chloride Carbon Dioxide Anion Gap BUN Creatinine Estimated GFR (MDRD) Glucose Calcium Magnesium Total Bilirubin AST ALT Alkaline Phosphatase Troponin I High Sens Total Protein Albumin Globulin Albumin/Globulin Ratio Lipase Urine Color DARK YELLOW Urine Clarity CLEAR Urine pH 5.5 Ur Specific [place] >=1.030 H Urine Protein TRACE Urine Glucose (UA) NEGATIVE Urine Ketones >=80 H Urine Occult Blood NEGATIVE Urine Nitrite NEGATIVE Urine Bilirubin MODERATE H Urine Urobilinogen 0.2 (NORMAL) Ur Leukocyte Esterase NEGATIVE Ur Microscopic Review NOT INDICATED Urine Culture Comments NOT INDICATED - Rads (name of study) CT chest without Relevant Findings:: Final report received, EMP independent interpretation of test (There were no displaced rib fractures, no pneumothorax or other acute findings or abnormalities.) PD Medical Decision Making - ED course ED course: 68-year-old female with severe right rib pain, nausea vomiting diarrhea. Labs are complete in the emergency department no leukocytosis no anemia. Chemistry does reveal slight hypomagnesemia at 1.6, 400 mg magnesium oxide replaced. BUN elevated at 21, GFR suppressed at 55 most likely prerenal due to dehydration as patient reports she has been having nausea vomiting diarrhea. Her urine has large amount of ketones which could also be due to dehydration and patient not having much of an appetite, she also has a moderate amount of bilirubin found in her urine this does not correlate with her labs, her serum bili is 0.9 her lipase is 12 some not concerned about this being related to some possible biliary obstruction. CT was pretty inconclusive did not provide any insight as to why patient is experiencing severe left rib pain there were no displaced rib fractures or pneumothorax. The skin does not appear to have any rash concerning for possible shingles. Because of this decision was made to order troponin and ECG for possible atypical chest pain given patient's age and obesity and other comorbidities just to rule out other possible emergent indications as to why patient is experiencing the severe left rib pain.EKG did not not show any ST elevation or other active signs of ischemia troponin was also found to be within normal limits She was given Dilaudid for her pain as well as Zofran for her nausea and IV flu ids for her dehydration. I am prescribing a short course of short-acting opioid pain medication for this patient. 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 I have discussed that the opioids are for short term therapy only, and will not be refilled from the ED. Patient was told to follow-up with primary care provider and was given ER return precautions Departure - Departure Disposition: 01 Home, Self Care Clinical Impression: Contusion of rib on left side Qualifiers: Encounter type: initial encounter Qualified Code(s): S20.212A - Contusion of left front wall of thorax, initial encounter Instructions: ED Contusion Rib Prescriptions: oxyCODONE [Roxicodone] 5 mg PO Q4-6H PRN #12 tablet PRN Reason: Pain 5-7 ONDANSETRON ODT Prepack 2 [ZOFRAN ODT Prepack 2] 4 mg TL Q6H PRN #12 tablet PRN Reason: Nausea / Vomiting Comments: Thank you for trusting us with your care. I believe that the pain you are experiencing in your left rib is due to a deep bruise called a contusion. I am sending a prescription of Zofran to [facility] pharmacy you can take 48 mg every 8 hours for nausea and vomiting so that you are able to keep medications like Tylenol and ibuprofen down. You can take 1000 mg of Tylenol every 8 hours and up to 600 mg of ibuprofen every 6 hours for pain and discomfort. If you are still struggling with your pain after taking these [id number] medications I have also prescribed a very short course of oxycodone to help with your pain and discomfort. I am prescribing a short course of narcotic pain medication for you. These are potentially dangerous and addictive medications that should be used carefully. These medications may constipate you. Take an jccq-jax-[id number] stool softener (docusate) twice daily with plenty of water while taking these medications. If you go 24 hours without a bowel movement, take [id number] miralax, per package instructions. Do not drink or drive while taking these medications. If you received narcotic or sedating medications while in the emergency department, do not drive for 24 hours. Store this medication in a safe, secure place and out of reach of children. It is a violation of federal law to give or sell this medication to another person or to use in a manner other than prescribed. The ED will not refill narcotic prescriptions, including prescriptions lost or stolen. To dispose of unwanted medications: 1. [facility] at [address] [facility] in [place] has a medication drop box. They accept prescription medications (in pill form) Wednesday through Wednesday 9:00 a.m. to 5:00 p.m. 2. The [facility] [employer] accepts prescription medications (in pill form only) for disposal year round. Call for more information. 3. Contact the [facility] for the next [facility] sponsored prescription drug collection event. , [phone], or [phone]; Note that many narcotic pain relievers also contain Tylenol/acetaminophen. Please ensure that your total dose of acetaminophen from all sources does not exceed 3 g (3000 mg) per day. Forms: PCP List Discharge Date/Time: 10/29/23 16:02
[2023-10-29 12:33] LABS: BASOPHILS % (AUTO) 0.3 %; EOSINOPHILS # (AUTO) 0.1 10^3/uL (0.0-0.7); EOSINOPHILS % (AUTO) 0.8 %; HCT - HEMATOCRIT 43.4 % (37.0-47.0); HGB - HEMOGLOBIN 14.5 g/dL (12.0-16.0); LYMPHOCYTES # (AUTO) 1.6 10^3/uL (1.5-3.5); LYMPHOCYTES % (AUTO) 25.4 %; MEAN CORPUSCULAR HEMOGLOBIN 29.1 pg (27.0-31.0); MEAN CORPUSCULAR HGB CONC 33.4 g/dL (32.0-36.0); MEAN PLATELET VOLUME 11.7 fL (7.9-10.8); MONOCYTES # (AUTO) 0.4 10^3/uL (0.0-1.0); MONOCYTES % (AUTO) 6.5 %; NEUTROPHILS # (AUTO) 4.1 10^3/uL (1.5-6.6); NEUTROPHILS % (AUTO) 66.8 %; PLT - PLATELET COUNT 264 10^3/uL (130-450); RED BLOOD COUNT 4.99 10^6/uL (4.20-5.40); RED CELL DISTRIBUTION WIDTH 12.4 % (12.0-15.0); WHITE BLOOD COUNT 6.1 x10^3/uL (4.8-10.8)
[2023-10-29 12:49] LABS: BILIRUBIN,URINE MODERATE (NEGATIVE); GLUCOSE, URINE (UA) NEGATIVE (NEGATIVE); KETONES,URINE (UA) >=80 mg/dL (NEGATIVE); LEUKOCYTE ESTERASE, URINE NEGATIVE (NEGATIVE); NITRITE,URINE NEGATIVE (NEGATIVE); OCCULT BLOOD,URINE NEGATIVE (NEGATIVE); PH,URINE 5.5 PH (5.0-7.5); PROTEIN,URINE TRACE mg/dL (NEGATIVE); UROBILINOGEN,URINE 0.2 (NORMAL) E.U./dL (NORMAL)
[2023-10-29 12:51] LABS: ALBUMIN 4.6 g/dL (3.2-5.5); ALBUMIN/GLOBULIN RATIO 1.5 (1.0-2.2); BILIRUBIN,TOTAL 0.9 mg/dL (0.2-1.0); CALCIUM 10.1 mg/dL (8.5-10.3); MAGNESIUM 1.6 mg/dL (1.7-2.3); POTASSIUM 3.5 mmol/L (3.5-4.5); TOTAL PROTEIN 7.7 g/dL (6.4-8.9)
[2023-10-29 12:58] LABS: CLARITY,URINE CLEAR (CLEAR)
[2023-10-29] MEDS ORDERED: MAGNESIUM OXIDE 400 MG TABLET PO STA (13:12)
[2023-10-29] MEDS ORDERED: methylPREDNISolone SUCCINATE 125 MG/2 ML VIAL IVP STA (13:46)
--- NOTE | 2023-10-29 13:57 | CT Report ---
PROCEDURE: Chest WO INDICATIONS: severe left rib pain TECHNIQUE: A CT scan of the chest was performed. Intravenous contrast media was not administered. Images were re corded and evaluated at appropriate window settings. Reformats: axial MIP of the chest, coronal and s agittal. For radiation dose reduction, the following was used: automated exposure control, adjustment of mA and/or kV according to patient size. COMPARISON: None. FINDINGS: Image quality: Diagnostic Lungs and pleura:No hemothorax or pneumothorax. Mild bibasilar suspected atelectasis. No dense airspa ce disease. No solid nodules/mass requiring followup per current guidelines if patient is not high ri and has no primary malignancy. Mediastinum, heart, and esophagus: Mildly patulous distal esophagus, nonspecific. Normal heart size. No mediastinal hematoma. Mild atherosclerotic and coronary calcifications. Chest wall and thyroid: Thyroid is unremarkable. Chest wall is unremarkable. Upper abdomen: No gross abnormality on these limited noncontrast images. Bones: No displaced fracture. There are spine degenerative changes. IMPRESSION: No acute thoracic abnormality. No displaced rib fracture, pneumothorax, or mediastinal hematoma ident ified on this noncontrast CT. Clinical followup is recommended. If there is new or worsening clinical concern, reimaging could be obtained. Coronary calcifications are present. Reviewed by: Janusz Morse MD on 10/29/2023 1:[address] [facility] Approved by: Janusz Morse MD on 10/29/2023 1:[address] [facility] Station ID: [id number]
[2023-10-29] MEDS ORDERED: oxyCODONE 5 MG TABLET PO STA (15:42)
[2023-10-29 16:12] VITALS: BP 140/70; O2SAT 98
== END 2023-10-29 16:02 | disposition home or self-care (01) ==
LOC: ED 11:36
DX: S20.212A Contusion of left front wall of thorax, initial encounter (principal); W01.0XXA Fall on same level from slipping, tripping and stumbling without subsequent striking against object, initial encounter; Z91.81 History of falling; M21.372 Foot drop, left foot; I10 Essential (primary) hypertension
CPT/HCPCS: 36415; 71250; 80053; 81003; 83690; 83735; 84484; 85025; 93005; 96374; 96375; 96376; 99284; A9270; J1170; 81001; 87086

== ENCOUNTER 2023-11-22 10:41 | Outpatient (CLI) | payer MEDICARE ==
[2023-11-22 11:09] LABS: ALBUMIN 4.4 g/dL (3.2-5.5); ALBUMIN/GLOBULIN RATIO 1.7 (1.0-2.2); ALKALINE PHOSPHATASE 101 IU/L (42-121); ALT ALANINE AMINOTRANSFERASE 24 IU/L (10-60); AST ASPARTATE AMINOTRANSFERASE 19 IU/L (10-42); BILIRUBIN,TOTAL 0.8 mg/dL (0.2-1.0); BUN - BLOOD UREA NITROGEN 8 mg/dL (6-20); CARBON DIOXIDE - CO2 30 mmol/L (21-32); CHLORIDE 102 mmol/L (101-111); CHOL/HDL RATIO 4.6 (<4.4); CHOLESTEROL 218 mg/dL; CREATININE 0.8 mg/dL (0.6-1.3); GFR - MDRD 71 (>89); GLUCOSE 107 mg/dL (74-104); HDL CHOLESTEROL 47 mg/dL; LDL CHOLESTEROL,CALCULATED 147 mg/dL; LDL/HDL RATIO 3.1 (<4.4); POTASSIUM 3.2 mmol/L (3.5-4.5); SODIUM 140 mmol/L (135-145); TRIGLYCERIDES 120 mg/dL (48-352); VLDL CHOLESTEROL 24 mg/dL
[2023-11-22 11:24] LABS: THYROID STIMULATING HORMONE 2.73 uIU/mL (0.34-5.60)
[2023-11-22 11:42] LABS: ESTIMATED AVERAGE GLUCOSE 100 mg/dL (70-100); HEMOGLOBIN A1c% 5.1 % (4.27-6.07)
== END 2023-11-22 10:42 | disposition home or self-care (01) ==
LOC: LAB 10:41
PROVIDERS: ATTEND Family Medicine
DX: I10 Essential (primary) hypertension (principal); R73.09 Other abnormal glucose; Z79.899 Other long term (current) drug therapy; E03.9 Hypothyroidism, unspecified; E78.1 Pure hyperglyceridemia
CPT/HCPCS: 36415; 80053; 80061; 83036; 83721; 84443

== ENCOUNTER 2023-11-24 14:13 | Outpatient (CLI) | payer MEDICARE | END 2023-11-24 14:14 | disposition home or self-care (01) | LOC: LAB.R 14:13 | PROVIDERS: ATTEND Family Medicine | DX: R10.31 Right lower quadrant pain (principal); R10.32 Left lower quadrant pain; R19.7 Diarrhea, unspecified | CPT/HCPCS: 87045; 87046; 87177; 87209; 87427; 87493 ==

== ENCOUNTER 2024-04-07 09:17 | Outpatient (CLI) | payer MEDICARE ==
[2024-04-07 09:42] LABS: BASOPHILS % (AUTO) 0.3 %; EOSINOPHILS # (AUTO) 0.2 10^3/uL (0.0-0.7); EOSINOPHILS % (AUTO) 2.3 %; HGB - HEMOGLOBIN 15.2 g/dL (12.0-16.0); LYMPHOCYTES # (AUTO) 1.6 10^3/uL (1.5-3.5); LYMPHOCYTES % (AUTO) 22.4 %; MEAN CORPUSCULAR HEMOGLOBIN 29.8 pg (27.0-31.0); MEAN CORPUSCULAR HGB CONC 33.8 g/dL (32.0-36.0); MEAN CORPUSCULAR VOLUME 88.2 fL (81.0-99.0); MEAN PLATELET VOLUME 12.7 fL (7.9-10.8); MONOCYTES # (AUTO) 0.5 10^3/uL (0.0-1.0); MONOCYTES % (AUTO) 6.9 %; NEUTROPHILS # (AUTO) 4.9 10^3/uL (1.5-6.6); NEUTROPHILS % (AUTO) 67.8 %; PLT - PLATELET COUNT 274 10^3/uL (130-450); RED CELL DISTRIBUTION WIDTH 12.1 % (12.0-15.0); WHITE BLOOD COUNT 7.3 x10^3/uL (4.8-10.8)
[2024-04-07 09:55] LABS: ALBUMIN 4.7 g/dL (3.2-5.5); ALBUMIN/GLOBULIN RATIO 1.4 (1.0-2.2); ALKALINE PHOSPHATASE 115 IU/L (42-121); ALT ALANINE AMINOTRANSFERASE 12 IU/L (10-60); AST ASPARTATE AMINOTRANSFERASE 15 IU/L (10-42); BUN - BLOOD UREA NITROGEN 25 mg/dL (6-20); CALCIUM 10.1 mg/dL (8.5-10.3); CARBON DIOXIDE - CO2 25 mmol/L (21-32); CHLORIDE 101 mmol/L (101-111); CHOL/HDL RATIO 3.1 (<4.4); CHOLESTEROL 153 mg/dL; CREATININE 1.1 mg/dL (0.6-1.3); GFR - MDRD 49 (>89); GLUCOSE 126 mg/dL (74-104); HDL CHOLESTEROL 49 mg/dL; LDL CHOLESTEROL,CALCULATED 82 mg/dL; LDL/HDL RATIO 1.7 (<4.4); POTASSIUM 3.6 mmol/L (3.5-4.5); SODIUM 140 mmol/L (135-145); TRIGLYCERIDES 109 mg/dL; VLDL CHOLESTEROL 22 mg/dL
== END 2024-04-07 09:18 | disposition home or self-care (01) ==
LOC: LAB 09:17
PROVIDERS: ATTEND Family Medicine
DX: I10 Essential (primary) hypertension (principal); G89.29 Other chronic pain; M54.9 Dorsalgia, unspecified; E78.1 Pure hyperglyceridemia; I25.10 Atherosclerotic heart disease of native coronary artery without angina pectoris; Z79.899 Other long term (current) drug therapy
CPT/HCPCS: 36415; 80053; 80061; 83721; 85025